=== PATIENT | female | born 1990 | race Caucasian/White ===

== ENCOUNTER 2017-10-14 10:31 | Emergency (ER) | payer SELFPAY ==
[2017-10-14 10:32] VITALS: BP 143/76; PULSE 95; RESP 16; TEMP 36.8; O2SAT 100; BMI 21.4
[2017-10-14] MEDS: Doxycycline 100 MG CAPSULE PO (10:48)
--- NOTE | 2017-10-14 10:49 | ED.DCSUM_ITS ---
- ER Visit Summary Date of Service: 10/14/17 Chief Complaint: Abscess History of Present Illness: The patient is a 26 F who presents with abscess anterior chest noted 3 days ago. She states the redness is spreading and the abscess is larger with increased pain. She denies fever, chills night sweats. She denies a traumatic fever, murmur, SBE, IV drug use to be an immune suppressed. She states her last hepatitis and HIV test was negative. She does use methamphetamine. She states she does not inject. She denies any cardiopulmonary systems. She states she has had prior abscesses. Of note she is allergic to sulfa. Please read written note for complete detail. Physical Examination: Blood pressure elevated 143/76. She appears uncomfortable. She does have an abscess near these sternal notch. There is evidence of cellulitis as well. There is no lymphangitic spread. There is no supraclavicular lymphadenopathy. HEENT exam is unremarkable. Trach is midline. There is no carotid bruit. There is no tenderness to palpation over the carotid artery. Heart is regular without murmur, gallop or rub. S1 and S2 are normal. Lungs are clear to auscultation with good movement of air bilaterally. Test Results:. None were obtained Emergency Department Course and Treatment: Patient was consented for I&D of subcutaneous abscess. Since there is surrounding cellulitis and there are multiple areas of loculation concerned this represents MRSA. She was treated with doxycycline since she has allergy to sulfa. Treatment Plan: Patient was informed that I was caring for critical patients. She decided to leave and forego the incision and drainage of her anterior chest wall abscess. Disposition: Left prior to completion of treatment Impression: Subcutaneous anterior wall abscess with cellulitis This note was generated with [employer] dictation software. It may contain incorrect words, spelling, and punctuation that were not noted in review of the chart prior to signing ED Disposition - Plan for ED Patient: Disposition: Home or Assisted Living Chief Complaint: Abscess Referrals: Cornelio Leonard MD [Primary Care Provider] -
--- NOTE | 2017-10-14 12:42 | ED.RN ---
PT WAS SEEN BY PHYSICIAN AND ORDERS ENTERED. PT WAITED FOR I&D OF CHEST ABSCESS, HOWEVER PHYSICIAN WAS WITH CRITICAL PT. PT LEFT ED WITHOUT RECEIVING TREATMENT. PT DID NOT RECEIVE DISCHARGE INSTRUCTIONS OR RX.
== END 2017-10-14 12:44 | disposition home or self-care (01) ==
LOC: ED 11:18
PROVIDERS: Emergency Provider Emergency Medicine; Family Provider Family Medicine; PCP Family Medicine
DX: L02.213 Cutaneous abscess of chest wall (principal); L03.313 Cellulitis of chest wall; Z53.21 Procedure and treatment not carried out due to patient leaving prior to being seen by health care provider; F15.90 Other stimulant use, unspecified, uncomplicated; Z72.0 Tobacco use
CPT/HCPCS: 99282

== ENCOUNTER 2017-10-15 00:15 | Emergency (ER) | payer SELFPAY ==
[2017-10-15 00:16] VITALS: BP 126/88; PULSE 81; RESP 18; TEMP 36.7; O2SAT 100; BMI 22.9
--- NOTE | 2017-10-15 00:37 | ED.DCSUM_ITS ---
- ER Visit Summary Date of Service: 10/15/17 Chief Complaint: Abscess History of Present Illness: The patient is a [address] Leonard. She reports that she developed an abscess to the left upper chest 4 days ago. She reports that she has a dull, aching pain that is 10 out of 10 at worst and 7 out of 10 currently. It is worsened by movement. It is relieved by draining and warm compresses. Patient reports that she has had this twice in the past and required I&D's. She does also report a history of IV methamphetamine abuse. Physical Examination: Vitals: Stable. Afebrile. General: Well-nourished and well-developed. Head: Normocephalic atraumatic. Neck: Supple, no lymphadenopathy. No JVD. Nontender. Cardiovascular: Regular rate and rhythm. No murmurs. Respiratory: No respiratory distress. Clear to auscultation bilaterally. Abdominal: Soft, nontender, nondistended, normal bowel sounds. No guarding, rebound, or peritoneal signs. Back: Nontender. Extremities: Approximately 2 cm thrombosed superficial vein left forearm without surrounding erythema, fluctuance, or swelling, no edema. She is neurovascularly intact distal to this. No other signs of thrombophlebitis or infection. Skin: Proximal me 3 cm in diameter erythematous area to the left upper chest just inferior to the sternoclavicular junction. There is a 1 cm ulcer in the center of this. There is no induration or fluctuance. Neurologic: Alert and oriented ?3. Cranial nerves II through XII are intact. Normal strength and sensation. Psych: Normal affect. Emergency Department Course and Treatment: Had a prolonged discussion with the patient about the abscess on her chest. I do not feel that an incision and drainage is indicated. There is no induration or fluctuance. She has had it draining at home. She is given doxycycline, [place], naproxen p.o. Treatment Plan: Patient will be discharged with doxycycline and Bactroban. She given a prescription for 10 [place]. Instructed to follow-up with Dr. Leonard in 2 days for a wound check. She does understand that if this is not improving with conservative treatment that she may require an I&D. However, she would like to avoid that if at all possible for cosmetic reasons. At this time I do not feel that anything would be gained by attempting an I&D on this lesion that is not indurated or fluctuant and is already draining. Return to the emergency department for any worsening symptoms. Disposition: To home in improved and stable condition. Impression: 1. Abscess to chest. 2. Superficial thrombophlebitis left forearm. 3. Intravenous methamphetamine abuse. This note was generated with [employer] dictation software. It may contain incorrect words, spelling, and punctuation that were not noted in review of the chart prior to signing ED Disposition - Plan for ED Patient: Disposition: Home or Assisted Living Chief Complaint: Abscess Instructions: ED Staph Infec Abx Tx Only Prescriptions: Hydrocodone Bitart/Apap 5-325 [[place] 5MG-325MG] 1 tablet PO Q4H PRN PRN 2 Days # 10 tablet PRN Reason: Pain Doxycycline Monohydrate 100 mg PO BID #20 capsule Naproxen [Naprosyn] 500 mg PO BID #14 tablet Mupirocin Calcium [Bactroban] 30 gm TP 4X/DAY #1 tube Referrals: Cornelio Leonard MD [Primary Care Provider] - 2 Days for wound check
[2017-10-15] MEDS: Naproxen 250 MG Tablet 500 MG PO (00:54)
[2017-10-15] MEDS: Doxycycline 100 MG CAPSULE PO (00:54)
[2017-10-15] MEDS: HYDROcodone Bitartrate/Apap 5/325 Tablet PO ×2 (00:54)
--- NOTE | 2017-10-15 00:57 | ED.RN ---
DISCHARGE INSTRUCTIONS GIVEN TO AND REVIEWED WITH PATIENT, PATIENT DENIES QUESTIONS OR CONCERNS AND VOICES UNDERSTANDING OF DISCHARGE INSTRUCTIONS. PT AMBULATES OUT OF ROOM WITHOUT DIFFICULTY.
== END 2017-10-15 00:58 | disposition home or self-care (01) ==
LOC: ED 00:41
PROVIDERS: Emergency Provider Emergency Medicine; Family Provider Family Medicine; PCP Family Medicine
DX: L02.213 Cutaneous abscess of chest wall (principal); I80.8 Phlebitis and thrombophlebitis of other sites; F15.10 Other stimulant abuse, uncomplicated; L98.499 Non-pressure chronic ulcer of skin of other sites with unspecified severity; F17.200 Nicotine dependence, unspecified, uncomplicated
CPT/HCPCS: 99283

== ENCOUNTER 2017-10-21 19:48 | Emergency (ER) | payer MEDICAID, SELFPAY ==
[2017-10-21 19:49] VITALS: BP 137/79; PULSE 104; RESP 20; TEMP 36.5; O2SAT 100; BMI 22.1
--- NOTE | 2017-10-21 19:57 | ED.VISSUMM ---
- ER Visit Summary Date of Service: 10/21/17 Chief Complaint: Concern for infection History of Present Illness: The patient is a 26 F who was seen within the past week and left prior to completion of treatment for a superior midline anterior chest abscess. She denies fever, chills night sweats. She denies a traumatic fever, SBE, being immune suppressed or IV drug use. She denies any other symptoms. Physical Examination: Vital signs are remarkable for heart rate 104 and blood pressure 137/79. The abscess spontaneously drained. There is surrounding cellulitis. There is concerned this represents MRSA. Since patient is allergic to sulfa she will require doxycycline. Heart is regular without murmur, gallop or rub. S1 and S2 are normal. Lungs are clear to auscultation with good movement of air bilaterally. Test Results: None are indicated Emergency Department Course and Treatment: Doxycycline for strep, and MRSA coverage Treatment Plan: Prescription for doxycycline for 7 days and follow-up with primary care provider Disposition: Discharged to home Impression: Subcutaneous abscess anterior chest spontaneous drainage with surrounding cellulitis This note was generated with [employer] dictation software. It may contain incorrect words, spelling, and punctuation that were not noted in review of the chart prior to signing ED Disposition - Plan for ED Patient: Disposition: Home or Assisted Living Chief Complaint: Abscess Instructions: ED Infec Skin Cellulitis Prescriptions: Doxycycline [Vibramycin] 100 mg PO BID #13 cap Referrals: Cornelio Leonard MD [Primary Care Provider] - 2 Days for wound check
--- NOTE | 2017-10-21 20:02 | ED.DCSUM_ITS ---
- ER Visit Summary Date of Service: 10/21/17 Chief Complaint: Concern for infection History of Present Illness: The patient is a 26 F who was seen within the past week and left prior to completion of treatment for a superior midline anterior chest abscess. She denies fever, chills night sweats. She denies a traumatic fever, SBE, being immune suppressed or IV drug use. She denies any other symptoms. Physical Examination: Vital signs are remarkable for heart rate 104 and blood pressure 137/79. The abscess spontaneously drained. There is surrounding cellulitis. There is concerned this represents MRSA. Since patient is allergic to sulfa she will require doxycycline. Heart is regular without murmur , gallop or rub. S1 and S2 are normal. Lungs are clear to auscultation with good movement of air bilaterally. Test Results: None are indicated Emergency Department Course and Treatment: Doxycycline for strep, and MRSA coverage Treatment Plan: Prescription for doxycycline for 7 days and follow-up with primary care provider Disposition: Discharged to home Impression: Subcutaneous abscess anterior chest spontaneous drainage with surrounding cellulitis This note was generated with [employer] dictation software. It may contain incorrect words, spelling, and punctuation that were not noted in review of the chart prior to signing ED Disposition - Plan for ED Patient: Disposition: Home or Assisted Living Chief Complaint: Abscess Instructions: ED Infec Skin Cellulitis Prescriptions: Doxycycline [Vibramycin] 100 mg PO BID #13 cap Referrals: Cornelio Leonard MD [Primary Care Provider] - 2 Days for wound check
[2017-10-21 20:10] VITALS: BP 137/79; PULSE 104
[2017-10-21] MEDS: Doxycycline 100 MG CAPSULE PO (20:12)
== END 2017-10-21 20:15 | disposition home or self-care (01) ==
PROVIDERS: Emergency Provider Emergency Medicine; Family Provider Family Medicine; PCP Family Medicine
DX: L03.313 Cellulitis of chest wall (principal)
CPT/HCPCS: 99283

== ENCOUNTER 2017-11-06 05:42 | Emergency (ER) | payer MEDICAID, SELFPAY ==
[2017-11-06 05:43] VITALS: PULSE 104; RESP 17; TEMP 37.1; O2SAT 98; BMI 21.1
[2017-11-06 05:50] VITALS: BP 123/75
--- NOTE | 2017-11-06 06:02 | ED.VISSUMM ---
- ER Visit Summary Date of Service: 11/06/17 Chief Complaint: Abscess History of Present Illness: The patient is a 27 F increasing abscess left arm, left lower back, left breast region over 4 days. Subjective fever, chills, sweats. History of IV drug abuse with methamphetamine. Last use was yesterday. She did inject in the left forearm prior to abscess. No diabetes history. Seen last month for similar in the sternum. Allergies sulfa causing hives. Physical Examination: General: Alert and oriented ?3, no acute distress HEENT: Normocephalic, atraumatic. Moist mucosa membranes Neck: supple, nontender. Cardiovascular: Regular rate and rhythm, no murmurs Chest wall: Left breast noted a 4 cm area of induration extends under aveolar, closed comedones, slight fluctuance, surrounding erythema. Respiratory: Normal breath sounds, symmetric, no distress Back: 1/2 cm induration with surrounding erythema, no active drainage. Abdomen: Soft, nontender, nondistended Extremities: Nontender, no edema, pulses intact ?4. Left forearm, 2 cm area of induration with slight fluctuance and erythema. Neuro: no focal neurological deficits. Test Results: WBC 12.2. Lactic acid normal. Wound cultures sent and pending. Left wrist x-ray: No radiopaque foreign bodies. Emergency Department Course and Treatment: Patient nontoxic. Multiple areas of abscesses left breast, left forearm, left lower back. Due to injection site abscess left wrist, x-ray obtained negative for radiopaque foreign bodies. The patient's region left breast extending under her aveolar. I did discuss with on-call surgeon, Dr. Fuentes recommended obtaining wound culture and I&D from left forearm and back. This was performed under normal sterile conditions. Cultures were obtained from left forearm. There is exudative drainage from both sites. Dr. Fuentes was present in the room, evaluate left breast region, he performed an I&D left breast with 2 cc of exudative drainage which was also sent to the lab. Nasal cultures were sent for MRSA. Recommended 1 dose of IV vancomycin, she will be placed on doxycycline for 10 days. Prescription of Motrin. She will be seen as an outpatient in Dr. Fuentes's office. Treatment Plan: [] Disposition: Plan discharge Impression: 1. Multiple abscesses, left breast, left wrist, left lower back 2. History of IV drug abuse This note was generated with [employer] dictation software. It may contain incorrect words, spelling, and punctuation that were not noted in review of the chart prior to signing ED Disposition - Plan for ED Patient: Disposition: Home or Assisted Living Chief Complaint: Abscess Diagnosis: Abscess of multiple sites, IV drug abuse Instructions: ED Abscess IandD Prescriptions: Doxycycline Monohydrate 100 mg PO BID #20 capsule Ibuprofen 600 mg PO 4X/DAY #30 tablet Referrals: Cornelio Leonard MD [Primary Care Provider] - Diego Dean MD [STAFF PHYSICIAN] - 3-5 Days
--- NOTE | 2017-11-06 06:17 | RAD_ITS ---
STUDY: X-RAY - LEFT WRIST REASON FOR EXAM: Female, 27 years old. Abscess area of left distal radius. IV drug user. TECHNIQUE: The view(s) of the wrist were obtained. COMPARISON: None. FINDINGS: Normal visualized distal radius and ulna. Normal radiocarpal articulation. Normal distal radioulnar articulation. Normal carpal bones. Normal carpal articulations. Normal carpometacarpal articulation of the thumb. Normal second through fifth carpometacarpal articulations. Normal visualized metacarpal bones. Focal soft tissue swelling along the distal radius. There is no radiopaque foreign body.. RAD/Wrist min 3 Views IMPRESSION: Focal soft tissue swelling along the distal radius. There is no radiopaque foreign body. No sign OF osteomyelitis. Electronically Signed: Amanda Leone MD at 7:41 EDT , Service support ,
[2017-11-06] MEDS: 0.9% Normal Saline 1,000 ML 150 ML IV (06:23)
[2017-11-06 06:31] LABS: Absolute Lymphocyte Count 1.77 X10^3/ul (0.83-4.51); Absolute Neutrophil Count 8.9 X10^3/uL (2.0-7.7); Basophil# 0.04 X10^3/uL; Basophil% 0.3 % (0-1); Eosinophil# 0.11 X10^3/uL; Eosinophils% 0.9 % (0-5); Hematocrit 34.2 % (37-47); Hemoglobin 11.9 g/dl (12.0-15.0); Lymphocyte # 1.77 X10^3/ul (4.0); Lymphocyte % 14.5 % (19-41); Mean Corp Hgb Conc 34.8 g/gl (32-36); Mean Corpuscular Hgb 31.5 pg (27.0-32.0); Mean Corpuscular Volume 90.5 fL (81-99); Mean Platelet Vol. 8.3 fl (6.2-12.0); Monocyte# 1.33 X10^3/uL; Monocyte% 10.9 % (0-10); Neutrophil # 8.92 X10^3/uL (2.7-7.7); Neutrophil % 73.2 % (47-70); Platelet Count 216 K/mm3 (150-450); RBC Distribution Width CV 12.6 % (11.6-14.6); RBC Distribution Width SD 41.4 fl (35.1-43.9); Red Blood Count 3.78 M/mm3 (4.2-5.4); White Blood Count 12.2 K/mm3 (4.4-11.0)
[2017-11-06 06:33] LABS: International Normalized Ratio 1.1; Prothrombin Time (Protime)PT. 13.7 SECONDS (11.7-14.9)
[2017-11-06 06:34] LABS: POSITIVE COUNT NO; POSITIVE DIFFERENTIAL NO; POSITIVE MORPHOLOGY NO; Partial Thromboplast Time 32.6 Seconds (24.1-36.2)
[2017-11-06 06:51] LABS: ALB/GLOB Ratio 0.8 RATIO (0.9-2.4); AST(SGOT) 146 U/L (15-37); Alanine Aminotransfer ALT/SGPT 423 U/L (13-56); Albumin, Serum 2.9 g/dL (3.2-5.0); Alkaline Phosphatase 118 U/L (45-117); Anion Gap 9 (5-15); BUN 9 mg/dL (7-18); BUN/Creat Ratio 18.9 RATIO (10-20); Chloride 107 mmol/L (98-107); Creatinine, Serum 0.48 mg/dL (0.55-1.02); EST Glomerular Filtration Rate 164 mL/min (>60); Est Glom Filt Rate - Afr Amer 199 mL/min (>60); Estimated Creatinine Clearance 149.33 ml/min; Globulin 3.5 g/dL (2.2-4.2); Glucose 112 mg/dL (74-106); Protein, Total 6.4 g/dL (6.4-8.2); Sodium Level 140 mmol/L (136-145)
[2017-11-06 06:52] LABS: Lactic Acid 0.8 mmol/L (0.4-2.0)
[2017-11-06] MEDS: Ketorolac 30 MG/ML Syringe IV (09:04)
--- NOTE | 2017-11-06 19:12 | CON.PCM_ITS ---
Reason for Consult Date of Consultation: 11/06/17 Reason for Consultation: left breast abscess History of Present Illness: The patient is a 27 year old F with a history of IV drug abuse-IV crystal methamphetamine, last used the day prior to presentation who notes a history of multiple abscesses. These have been MRSA abscesses in the past. She currently presents with an abscess on her left wrist, left posterior buttock and left breast. The patient had a white blood to count of 12. I was contacted by the emergency department physician, Dr. Agustin, was planning to perform incision and drainage of the wrist and back, but wanted my opinion for the left breast abnormality. Past Medical History Allergies Sulfa (Sulfonamide Antibiotics) Allergy (Verified 11/06/17 05:47) Rash Home Medications: Ambulatory Orders Medication Instructions Recorded Doxycycline [Vibramycin] 100 mg PO BID #13 cap 10/21/17 Doxycycline Monohydrate 100 mg PO BID #20 capsule 11/06/17 Ibuprofen 600 mg PO 4X/DAY #30 tablet 11/06/17 Smoking Status: Current every day smoker Drugs: - - intravenous methamphetamine Review of Systems Constitutional: Reports: Anorexia, Fever HEENT: Denies: Head Aches, Sinus Congestion, Sinus Drainage Cardiovascular: Denies: Chest Pain, Palpitations Respiratory: Denies: Cough, Shortness of breath at rest, Sputum production Gastrointestinal: Denies: Abdominal Pain, Nausea, Vomiting Genitourinary: Denies: Dysuria Gynecological: Reports: Breast symptoms Musculoskeletal: Reports: Arm Pain, Back Pain - Physical Exam General: Alert, Oriented x3 Lungs: Clear to auscultation Cardiovascular: Regular rate, Regular Rhythm Abdomen: Bowel Sounds Present, Soft Skin: - - an abscess with necrotic material on her left wrist and left back area , which was incised and drained by . Culture swabs were obtained. Musculoskeletal: - - left breast-along the medial inferior nipple areolar complex. There is a 3 x 2 cm area of compromised tissue with sinuses draining purulent material consistent with an MRSA abscess. Vital Signs Temp Pulse Resp BP Pulse Ox 98.8 F 104 H 17 123/75 H 98 11/06/17 05:43 11/06/17 05:43 11/06/17 05:43 11/06/17 05:50 11/06/17 05:43 Oxygen Delivery Method Room Air Weight: 55.8 kg Body Mass Index (BMI) 21.1 Microbiology Past 72 Hours 11/06/17 07:30 Gram Stain - Final Wound - Breast 11/06/17 07:06 Gram Stain - Final Wound Abcess - Left Wrist Laboratory Tests Past 24 Hrs 11/06/17 11/06/17 11/06/17 06:14 06:14 06:14 WBC 12.2 H RBC 3.78 L Hgb 11.9 L Hct 34.2 L MCV 90.5 MCH 31.5 MCHC 34.8 RDW 12.6 RDW Differential 41.4 Plt Count 216 MPV 8.3 Immature Gran % (Auto) 0.200 Neut % (Auto) 73.2 H Lymph % (Auto) 14.5 L [place] % (Auto) 10.9 H Eos % (Auto) 0.9 Baso % (Auto) 0.3 Absolute Neuts (auto) 8.9 H Absolute Lymphs (auto) 1.77 Total Counted Not Reportable PT 13.7 INR 1.1 APTT 32.6 Sodium 140 Potassium 3.0 L Chloride 107 Carbon Dioxide 24.0 Anion Gap 9 BUN 9 Creatinine 0.48 L Estim Creat Clear Calc 149.33 Est GFR (MDRD) Af Amer 199 Est GFR (MDRD) Non-Af 164 BUN/Creatinine Ratio 18.9 Glucose 112 H Lactic Acid Calcium 8.0 L Total Bilirubin 0.70 AST 146 H ALT 423 H Alkaline Phosphatase 118 H Total Protein 6.4 Albumin 2.9 L Globulin 3.5 Albumin/Globulin Ratio 0.8 L 11/06/17 06:14 WBC RBC Hgb Hct MCV MCH MCHC RDW RDW Differential Plt Count MPV Immature Gran % (Auto) Neut % (Auto) Lymph % (Auto) [place] % (Auto) Eos % (Auto) Baso % (Auto) Absolute Neuts (auto) Absolute Lymphs (auto) Total Counted PT INR APTT Sodium Potassium Chloride Carbon Dioxide Anion Gap BUN Creatinine Estim Creat Clear Calc Est GFR (MDRD) Af Amer Est GFR (MDRD) Non-Af BUN/Creatinine Ratio Glucose Lactic Acid 0.8 Calcium Total Bilirubin AST ALT Alkaline Phosphatase Total Protein Albumin Globulin Albumin/Globulin Ratio Assessment/Plan All Active Problems Abscess of multiple sites (Acute) IV drug abuse (Acute) patient was consented for incision and drainage. The left breast was Prepped and draped in the usual manner with Betadine. One percent lidocaine was injected around the planned skin incision site. An 18-gauge needle was inserted into the abscess and pus aspirated. This was sent for culture. A linear incision was made along the nipple areolar border. More purulent and necrotic tissue was able to be expressed and debrided. The site was then packed with iodoform gauze. IV drug abuse, multiple abscesses of MRSA. I recommend the patient received 1 dose of vancomycin. She has an allergy to sulfa. I recommend discharge on doxycycline. Patient is instructed to remove the packing in 1 day. She should follow up my office next week. I recommend referral to Dr. wallace, software development specialist for her intravenous methamphetamine abuse.
--- NOTE | 2017-11-08 08:54 | ED.RN ---
MRSA+ RESULTS GIVEN TO DR HAGAN. PER DR HAGAN NO CHANGES TO TREATMENT
== END 2017-11-06 10:31 | disposition home or self-care (01) ==
PROVIDERS: Emergency Provider Emergency Medicine; Family Provider Family Medicine; PCP Family Medicine
DX: L02.414 Cutaneous abscess of left upper limb (principal); L02.212 Cutaneous abscess of back [any part, except buttock and flank]; N61.1 Abscess of the breast and nipple; F15.10 Other stimulant abuse, uncomplicated; Z86.14 Personal history of Methicillin resistant Staphylococcus aureus infection; F17.200 Nicotine dependence, unspecified, uncomplicated
CPT/HCPCS: 10061; 10060; 73110; 80053; 83605; 85025; 85610; 85730; 87040; 87070; 87075; 87077; 87081; 87186; 87205; 96361; 96365; 96366; 96375; 99284; J7030; A4216

== ENCOUNTER 2018-10-21 03:04 | Emergency (ER) | payer MEDICAID, SELFPAY ==
[2018-10-21 03:06] VITALS: BP 133/86; PULSE 97; RESP 22; TEMP 36.7; O2SAT 98; BMI 23.3
--- NOTE | 2018-10-21 03:17 | EKG12_ITS ---
Test Reason : Blood Pressure : / mmHG Vent. Rate : 089 BPM Atrial Rate : 089 BPM P-R Int : 116 ms QRS Dur : 090 ms QT Int : 372 ms P-R-T Axes : 086 086 055 degrees QTc Int : 452 ms Normal sinus rhythm Possible Left atrial enlargement Borderline ECG Confirmed by CRUZ COLLINS ([id number]), film editor supervisor SOPHIA JADE ([id number] on 10/25/2018 2:52:28 PM Referred By: DAVID Confirmed By:TONO COLLINS
--- NOTE | 2018-10-21 03:17 | RAD_ITS ---
HISTORY: COUCH, CHEST PAIN EXAM:XR Chest 2 Views COMPARISON: 07/23/2016 FINDINGS: EKG leads in place. No significant change. Normal heart size. Mild hyperinflation. No vascular congestion, pleural effusion, or acute pulmonary infiltration. No pneumothorax. The bony thorax appears intact. RAD/Chest PA and Lateral IMPRESSION: 1. No acute cardiopulmonary disease. No significant interval change. 2. Mild hyperinflation. at 0351 Reported and signed by: Albaro Frederick MD Electronically Signed: Albaro Frederick, at 3:50 EDT Tel , Service support ,
--- NOTE | 2018-10-21 03:20 | ED.DCSUM_ITS ---
- ER Visit Summary Date of Service: 10/21/18 Chief Complaint: Chest pain, shortness of breath History of Present Illness: The patient is a 27 F who has had recent cough. She got chest pain, worse with deep breath since 3 PM yesterday afternoon. She has not taken anything for the pain. Cough has been nonproductive. She has not had fever or chills. Physical Examination: Vital signs unremarkable. Patient sitting upright in bed no acute distress. She does appear anxious. Heart is regular rate and rhythm. Lung sounds are clear. She does have reproducible tenderness on the right sternal border. Abdomen is soft and nontender. Lower extremity examination was no calf tenderness or edema. Test Results: EKG is sinus 89 with no acute ischemia. Two-view chest x-ray normal. CBC and chemistry studies remarkable only for glucose of 127. test is negative. D-dimer is elevated at 1.01. CTA of the chest is performed and is unremarkable. Emergency Department Course and Treatment: Patient is given IV Toradol and Solu- Medrol. I believe she has costochondritis. She has had recent viral URI. She will be treated with naproxen and prednisone. Treatment Plan: [] Disposition: Discharge Impression: Costochondritis This note was generated with [employer] dictation software. It may contain incorrect words, spelling, and punctuation that were not noted in review of the chart prior to signing ED Disposition - Plan for ED Patient: Disposition: Home or Assisted Living Instructions: ED Chest Pain Costochondritis Prescriptions: Naproxen [Naprosyn] 500 mg PO BID PRN PRN #20 tablet PRN Reason: Pain Prednisone 10 mg PO UD #33 tablet Referrals: Cornelio Leonard MD [Primary Care Provider] - 1 Week
[2018-10-21] MEDS: MethylPREDNISolone 125 MG/2 ML Vial 80 MG IV (03:23)
[2018-10-21] MEDS: Ondansetron 4 MG/2 ML Vial IV (03:23)
[2018-10-21] MEDS: 0.9% Normal Saline 1,000 ML 1000 ML IV (03:23)
[2018-10-21] MEDS: Ketorolac 30 MG/ML Syringe IV (03:23)
[2018-10-21 03:33] LABS: Absolute Lymphocyte Count 2.08 X10^3/ul (0.83-4.51); Absolute Neutrophil Count 5.4 X10^3/uL (2.0-7.7); Basophil# 0.03 X10^3/uL; Basophil% 0.3 % (0-1); Eosinophil# 0.56 X10^3/uL; Eosinophils% 6.3 % (0-5); Hematocrit 36.6 % (37-47); Hemoglobin 13.1 g/dl (12.0-15.0); Lymphocyte # 2.08 X10^3/ul (4.0); Lymphocyte % 23.5 % (19-41); Mean Corp Hgb Conc 35.8 g/gl (32-36); Mean Corpuscular Hgb 31.7 pg (27.0-32.0); Mean Corpuscular Volume 88.6 fL (81-99); Mean Platelet Vol. 8.1 fl (6.2-12.0); Monocyte# 0.79 X10^3/uL; Monocyte% 8.9 % (0-10); Neutrophil # 5.36 X10^3/uL (2.7-7.7); Neutrophil % 60.8 % (47-70); Platelet Count 194 K/mm3 (150-450); RBC Distribution Width CV 13.3 % (11.6-14.6); RBC Distribution Width SD 43.4 fl (35.1-43.9); Red Blood Count 4.13 M/mm3 (4.2-5.4); White Blood Count 8.8 K/mm3 (4.4-11.0)
[2018-10-21 03:35] LABS: POSITIVE COUNT NO; POSITIVE DIFFERENTIAL NO; POSITIVE MORPHOLOGY NO
[2018-10-21 03:45] LABS: Anion Gap 8 (5-15); BUN 11 mg/dL (7-18); BUN/Creat Ratio 14.8 RATIO (10-20); Calcium,Total 8.5 mg/dL (8.5-10.1); Chloride 106 mmol/L (98-107); Creatinine, Serum 0.74 mg/dL (0.55-1.02); EST Glomerular Filtration Rate 98 mL/min (>60); Est Glom Filt Rate - Afr Amer 118 mL/min (>60); Estimated Creatinine Clearance 96.86 ml/min; Glucose 127 mg/dL (74-106); Internal QC Validated? YES +Cl - CLEAR BKGD; Potassium 3.8 mmol/L (3.5-5.1); Pregnancy, Serum, hCG Quali. NEGATIVE Negative; Sodium Level 142 mmol/L (136-145)
[2018-10-21 03:57] LABS: D-Dimer Quantitative (DVT/PE) 1.01 FEU/ug/m (0.27-0.49)
--- NOTE | 2018-10-21 03:57 | ED.RN ---
DR BUNDY MADE AWARE OF D-DIMER 1.01.
--- NOTE | 2018-10-21 03:58 | CT_ITS ---
HISTORY: CP/ SOB/COUGH SINCE 3PM EXAMINATION: CTA Chest WO/W Contrast TECHNIQUE: Helically acquired images were obtained of the chest following IV contrast as per pulmonary angiogram protocol with 3D reconstructions. A radiation dose optimization technique was used for this scan. IV Contrast dosage and agent: 75ML Isovue 370 COMPARISON: 2 view chest x-ray 10/21/2018 Findings: The main, segmental, and visualized subsegmental pulmonary arteries show normal opacification and appearance. No PE. Thoracic aorta is normal in caliber without evidence of aneurysm or dissection. Normal heart size. No pericardial effusion. No hilar or mediastinal lymph node enlargement. The lung parenchyma is clear. A right lower lobe accessory fissure is noted. No pleural effusion or significant pleural disease. Bones: No acute osseous abnormality. CT/CTA Chest W/WO Contrast IMPRESSION: Normal CTA chest. No PE or acute chest disease identified. Individualized dose optimization techniques were used for this CT. at 5721 Reported and signed by: Albaro Frederick MD Electronically Signed: Albaro Frederick, at 4:46 EDT Tel , Service support ,
[2018-10-21 04:46] VITALS: BP 123/73; PULSE 84; RESP 18; O2SAT 100
[2018-10-21 05:05] VITALS: BP 102/87; PULSE 83; RESP 16; O2SAT 98
== END 2018-10-21 05:06 | disposition home or self-care (01) ==
PROVIDERS: Emergency Provider Emergency Medicine; Family Provider Family Medicine; PCP Family Medicine
DX: M94.0 Chondrocostal junction syndrome [Tietze] (principal); Z72.0 Tobacco use
CPT/HCPCS: 71046; 71275; 80048; 84703; 85025; 85379; 93005; 96361; 96374; 96375; 99284; J7030; Q9967; J2405

== ENCOUNTER 2020-01-15 16:30 | Emergency (ER) | payer MEDICAID, SELFPAY ==
[2020-01-15 16:32] VITALS: BP 97/24; PULSE 110; RESP 15; TEMP 37.5; O2SAT 96; BMI 24.7
[2020-01-15 16:38] VITALS: RESP 16
[2020-01-15 16:39] VITALS: BP 97/24; PULSE 110; RESP 16; TEMP 37.5; O2SAT 96
--- NOTE | 2020-01-15 16:42 | ED.VIS.GEN ---
History of Present Illness Chief Complaint: Wound Check Informant: Patient, Significant Other Onset: Weeks - 1 week Context: Gradual Onset Timing: Continuous Quality: Blister Location: Left third toe and right heel Current Severity: Moderate Maximum Severity: Moderate Worsened by: Nothing Relieved by: nothing Associated Symptoms: Denies Narrative: 29-year-old female history of depression and methamphetamine abuse presents for wound check. She has a blister on her left third toe as well as her right heel. She is concerned for infection. She states that she has not had a fever. No purulent drainage from these areas. She recently was [facility]. She has not had any chest pain or shortness of breath she has not been lightheaded or dizzy denies nausea vomiting or diarrhea or any constitutional symptoms. She does have a history of MRSA Prior similar symptoms: Yes Recent Illness/Hospitalization: No Past Medical History - Allergies and Home Meds Allergies/Adverse Reactions: Allergies Sulfa (Sulfonamide Antibiotics) Allergy (Verified 01/15/20 16:31) Rash Primary Care Physician: Cornelio Leonard MD [Primary Care Provider] - Prior records reviewed: Yes Past Medical History: - - Polysubstance abuse Surgical History: no surgical history Smoking Status: Current every day smoker Alcohol: Occasional Drugs: - - With amphetamines Review of Systems All systems negative except as indicated General: Denies: Chills, Fever, Sweats Eyes: Denies: Visual changes - bilaterally, Diplopia ENT: Denies: Rhinorrhea, Sore throat Cardiovascular: Denies: Chest pain, Palpitations Respiratory: Denies: Dyspnea, Cough, Dyspnea on exertion Gastrointestinal: Denies: Abdominal pain, Nausea, Vomiting, Diarrhea, Melena, Hematochezia Genitourinary: Denies: Dysuria, Hematuria, Frequency Musculoskeletal: Denies: Back pain, Extremity Pain Skin: Reports: Abscess. Denies: Rash, Abrasions, Wounds Neurological: Denies: Headache, Weakness, Numbness Physical Exam Vital Signs/Narrative: Vital Signs Temp Pulse Resp BP Pulse Ox 01/15/20 16:39 99.5 F H 110 H 16 97/24 L 96 01/15/20 16:38 16 01/15/20 16:32 99.5 F H 110 H 15 97/24 L 96 Inital Vital Signs reviewed: Yes General: Well nourished, Well developed, No Acute Distress Head: Normocephalic, Atraumatic Eyes: Perrl, EOMI ENT: Moist mucous membranes, No rhinorrhea Neck: Supple, Nontender Cardiovascular: Regular rate, Regular rhythm, No murmurs Respiratory: No distress, CTA bilaterally, Chest nontender Abdomen: Soft, Nontender, Nondistended, Normal bowel sounds Back: Nontender, Normal Inspection Extremities: Nontender, No edema Skin: Normal color, No rash, - - Patient has a abrasion on her left third toe dorsal aspect between the MCP and toenail. It does not affect the nail. There is some mild cellulitis. There is no abscess. She has normal capillary refill and sensation and normal active range of motion. There is no lymphatic streaking. No other wounds are noted on her foot ankle leg or thigh. She has a similar lesion on her right heel that appears to be an infected abrasion. No abscess. No lymphatic streaking. Normal range of motion actively throughout both lower extremities and normal and symmetrical pulses and sensation throughout both lower extremities Neurological: Alert, Oriented x3, Cranial nerves II-XII grossly intact, Normal Strength, Normal Sensation Psychological: Normal affect, Normal Mood Diagnostic/Tx/Re-eval - Medical Decision Making Patient has 2 infected abrasions 1 on her left third toe and one on her right heel. Will place on doxycycline. Discussed proper wound care. Discussed worsening signs of infection to monitor for. Given a primary care to follow-up. She will be discharged ED Disposition - Plan for ED Patient: Disposition: Home or Assisted Living Diagnosis: Cellulitis of toe of left foot, Cellulitis of heel, right, Methamphetamine abuse Instructions: ED Cellulitis Prescriptions: Mupirocin [Bactroban] 1 applic TOPICAL TID #1 tube Transmission Status: Pending to [facility] Doxycycline 100 mg PO BID #20 cap Transmission Status: Pending to [facility] Referrals: Cornelio Leonard MD [Primary Care Provider] -
[2020-01-15 16:54] VITALS: RESP 16
--- NOTE | 2020-01-15 16:54 | ED.RN ---
REVIEWED D/C INSTRUCTIONS, FOLLOW UP CARE, PRESCRIPTIONS, AND S/S THAT WOULD WARRANT A RETURN TO THE ED WITH PT. PT VERBALIZED AN UNDERSTANDING AND DENIES FURTHER QUESTIONS FOR THIS RN. PT SKIN P/W/D, RESP EVEN AND UNLABORED, PT A&O X 3, NO DISTRESS NOTED. PT AMBULATED OUT OF ED, GAIT STEADY.
== END 2020-01-15 16:56 | disposition home or self-care (01) ==
LOC: ED 16:48
PROVIDERS: Emergency Provider Physician Assistant Medical; PCP Family Medicine
DX: L03.032 Cellulitis of left toe (principal); L03.115 Cellulitis of right lower limb; F15.10 Other stimulant abuse, uncomplicated; S90.415A Abrasion, left lesser toe(s), initial encounter; S90.811A Abrasion, right foot, initial encounter; X58.XXXA Exposure to other specified factors, initial encounter; Y93.9 Activity, unspecified; Y92.9 Unspecified place or not applicable; F32.9 Major depressive disorder, single episode, unspecified; Z86.14 Personal history of Methicillin resistant Staphylococcus aureus infection; Z79.899 Other long term (current) drug therapy; F17.200 Nicotine dependence, unspecified, uncomplicated
CPT/HCPCS: 99282

== ENCOUNTER 2020-03-17 02:09 | Emergency (ER) | payer MEDICAID, SELFPAY ==
[2020-03-17 02:11] VITALS: BP 119/87; PULSE 98; RESP 16; TEMP 36.4; O2SAT 98; BMI 24.0
--- NOTE | 2020-03-17 02:23 | ED.VISSUMM ---
- ER Visit Summary Date of Service: 03/17/20 Chief Complaint: Fifth finger pain History of Present Illness: The patient is a 29 F who has left fifth finger pain. Started 2 days ago. She denies any trauma to this area. She noted redness. She has a history of the same with multiple fingers. She does bite her nails. She poked it with a pin tonight and had some drainage. She denies any fevers. Pain is worse with movement and with touching Physical Examination: Signs reviewed. Left hand exam reveals tenderness over the distal fifth finger. There is a paronychia on the ulnar side. It is erythematous. It is tender to touch. Test Results: None performed Emergency Department Course and Treatment: Incision and drainage was performed of the paronychia. The left fifth finger was anesthetized using a digital block of 5 cc of 1% lidocaine. Incision was made over the ulnar side of the left fifth finger nail at the cuticle. There was some purulent drainage noted. The patient was educated to soak the finger multiple times at home to help with the drainage. I will give her Keflex as well. She will follow-up with her PCP Treatment Plan: [] Disposition: Discharge Impression: Left fifth finger paronychia I&D by ED physician This note was generated with [employer] dictation software. It may contain incorrect words, spelling, and punctuation that were not noted in review of the chart prior to signing ED Disposition - Plan for ED Patient: Disposition: Home or Assisted Living Instructions: ED FINGERNAIL INFECTION Prescriptions: Cephalexin [Keflex] 500 mg PO Q6 #40 cap Transmission Status: Pending to [facility] Referrals: Cornelio Leonard MD [Primary Care Provider] -
[2020-03-17] MEDS: Cephalexin 250 MG Capsule 500 MG PO (02:32)
== END 2020-03-17 02:45 | disposition home or self-care (01) ==
LOC: ED 02:43
PROVIDERS: Emergency Provider Emergency Medicine; PCP Family Medicine
DX: L03.012 Cellulitis of left finger (principal)
CPT/HCPCS: 10060; 99283

== ENCOUNTER 2020-05-04 01:20 | Emergency (ER) | payer MEDICAID, SELFPAY ==
[2020-05-04 01:21] VITALS: BP 144/86; PULSE 104; RESP 18; TEMP 36.7; O2SAT 100; BMI 23.5
[2020-05-04 01:28] VITALS: BP 144/86; PULSE 104; RESP 18; TEMP 36.7; O2SAT 100
--- NOTE | 2020-05-04 02:16 | ED.VISSUMM ---
- ER Visit Summary Date of Service: 05/04/20 Chief Complaint: Right axilla abscess History of Present Illness: The patient is a 29 F presenting with abscess in her right axilla. This has been ongoing for the past week. She was started on doxycycline 2 days ago. She states it has not worsened but it has not improved. She has had a history of previous abscesses but not in this area. She denies fever or other complaints. Physical Examination: Vitals are stable. Patient is afebrile. Alert no acute distress. HEENT exam is unremarkable. Neck is supple. Lungs are clear and equal bilaterally. Heart is regular rate and rhythm. Abdomen is soft nontender nondistended. Extremities 3 cm abscess right axilla with fluctuance Skin is warm and dry. Remainder of exam is unremarkable. Emergency Department Course and Treatment: I&D was performed. Anesthetized with lidocaine. Incised with 11 blade. Moderate amount of pus was drained. Probed to break up loculations. Irrigated with saline. Patient is advised to continue her antibiotics until complete. She is given [place] x1 in the ED. Advised to follow-up with primary care physician. Advised return to ED for worsening complaints. Disposition: Discharge home Impression: Right axilla abscess, I&D This note was generated with [employer] dictation software. It may contain incorrect words, spelling, and punctuation that were not noted in review of the chart prior to signing ED Disposition - Plan for ED Patient: Referrals: Cornelio Leonard MD [Primary Care Provider] -
--- NOTE | 2020-05-04 02:18 | ED.DEP ---
ED Disposition - Plan for ED Patient: Instructions: ED Abscess Incision And Drainage Referrals: Cornelio Leonard MD [Primary Care Provider] -
[2020-05-04] MEDS: HYDROcodone Bitartrate/Apap 5/325 Tablet PO (02:31)
[2020-05-04] MEDS: Lidocaine 1% (20 ml mdv) 20 ML Vial INFILT (02:31)
== END 2020-05-04 02:37 | disposition home or self-care (01) ==
LOC: ED 02:24
PROVIDERS: Emergency Provider Emergency Medicine
DX: L02.411 Cutaneous abscess of right axilla (principal); Z72.0 Tobacco use
CPT/HCPCS: 10060; 99282

== ENCOUNTER 2020-06-14 19:05 | Inpatient (IN) | payer MEDICAID, SELFPAY ==
[2020-06-14 19:05] VITALS: BP 149/92; PULSE 87; RESP 16; TEMP 35.7; O2SAT 100; BMI 24.8
--- NOTE | 2020-06-14 19:18 | ED.VIS.GEN ---
History of Present Illness Chief Complaint: Substance Abuse Informant: Patient Current Severity: Moderate Maximum Severity: Moderate Narrative: The patient is a 29-year-old female who presents to the emergency department requesting detox. Patient uses IV methamphetamines and heroin. She states that she injects daily. Her last use was about 14 hours ago. She states that she does not think she is ever gone through detox. She denies any current symptoms. She does have history of anxiety and depression, but does not take any medications. She denies being suicidal or homicidal. She injects mainly in her left arm. She denies any areas of redness or erythema. Prior similar symptoms: Yes Recent Illness/Hospitalization: No Past Medical History - Allergies and Home Meds Allergies/Adverse Reactions: Allergies Sulfa (Sulfonamide Antibiotics) Allergy (Verified 06/14/20 19:33) Rash Primary Care Physician: Care Physician,No Primary [Primary Care Provider] - Prior records reviewed: Yes Past Medical History: - - Anxiety, depression Surgical History: no surgical history Smoking Status: Current every day smoker Review of Systems General: Denies: Chills, Fever, Sweats Eyes: Denies: Visual changes - bilaterally, Diplopia ENT: Denies: Rhinorrhea, Sore throat Cardiovascular: Denies: Chest pain, Palpitations Respiratory: Denies: Dyspnea, Cough, Dyspnea on exertion Gastrointestinal: Denies: Abdominal pain, Nausea, Vomiting, Diarrhea, Melena, Hematochezia Genitourinary: Denies: Dysuria, Hematuria, Frequency Musculoskeletal: Denies: Back pain, Extremity Pain Skin: Denies: Rash, Wounds Neurological: Denies: Headache, Weakness, Numbness Physical Exam Vital Signs/Narrative: Vital Signs Temp Pulse Resp BP Pulse Ox 06/14/20 19:05 96.3 F L 87 16 149/92 H 100 Inital Vital Signs reviewed: Yes General: Well nourished, Well developed, No Acute Distress Head: Normocephalic, Atraumatic Eyes: Perrl, EOMI ENT: Moist mucous membranes, No rhinorrhea Neck: Supple, Nontender Cardiovascular: Regular rate, Regular rhythm, No murmurs Respiratory: No distress, CTA bilaterally, Chest nontender Abdomen: Soft, Nontender, Nondistended, Normal bowel sounds Back: Nontender, Normal Inspection Extremities: No edema, Tenderness - There is multiple injection mcclain on the left arm. No erythema. No abscess. Normal pulses. Skin: Normal color, No rash Neurological: Alert, Oriented x3, Cranial nerves II-XII grossly intact, Normal Strength, Normal Sensation Psychological: Normal affect, Normal Mood Diagnostic/Tx/Re-eval Abnormal Lab Results 06/14/20 06/14/20 06/14/20 19:30 19:35 19:35 WBC 6.2 RBC 4.54 Hgb 13.6 Hct 39.9 MCV 87.9 MCH 30.0 MCHC 34.1 RDW Std Deviation 40.1 RDW Coeff of Buddy 12.4 Plt Count 277 MPV 8.3 Immature Gran % (Auto) 0.300 Neut % (Auto) 51.3 Lymph % (Auto) 32.3 [place] % (Auto) 14.0 H Eos % (Auto) 1.5 Baso % (Auto) 0.6 Absolute Neuts (auto) 3.2 Absolute Lymphs (auto) 1.99 Nucleated RBC % 0 Urine Test Negative Urine Opiates Screen NEGATIVE Urine Methadone Screen NEGATIVE Ur Barbiturates Screen NEGATIVE Ur Phencyclidine Scrn NEGATIVE Ur Amphetamines Screen POSITIVE H U Methamphetamin-MDMA POSITIVE H U Benzodiazepines Scrn NEGATIVE Urine Cocaine Screen NEGATIVE U Cannabinoids Screen NEGATIVE Ur Drug Screen Comment - Medical Decision Making Patient presents requesting detox from opiates and methamphetamines. She is awake and alert. Metabolic work-up was pursued and is relatively unremarkable. The patient was seen and evaluated by social work. She did consent for inpatient detox. The patient was discussed with the hospitalist. Impression 1. Substance abuse 2. Opiate dependence ED Disposition - Plan for ED Patient: Referrals: Care Physician,No Primary [Primary Care Provider] -
[2020-06-14 19:48] LABS: Absolute Lymphocyte Count 1.99 X10^3/uL (0.83-4.51); Absolute Neutrophil Count 3.2 X10^3/uL (2.0-7.7); Basophil# 0.04 X10^3/uL; Basophil% 0.6 % (0-1); Eosinophil# 0.09 X10^3/uL; Eosinophils% 1.5 % (0-5); Hematocrit 39.9 % (37-47); Hemoglobin 13.6 g/dL (12.0-15.0); Lymphocyte # 1.99 X10^3/ul (4.0); Lymphocyte % 32.3 % (19-41); Mean Corp Hgb Conc 34.1 g/dL (32-36); Mean Corpuscular Volume 87.9 fL (81-99); Mean Platelet Vol. 8.3 fl (6.2-12.0); Monocyte# 0.86 X10^3/uL; NRBC Flagged by Analyzer 0 % (0-5); Neutrophil # 3.16 X10^3/uL (2.7-7.7); Neutrophil % 51.3 % (47-70); Platelet Count 277 K/mm3 (150-450); RBC Distribution Width CV 12.4 % (11.6-14.6); RBC Distribution Width SD 40.1 fl (35.1-43.9); Red Blood Count 4.54 M/mm3 (4.2-5.4); White Blood Count 6.2 K/mm3 (4.4-11.0)
[2020-06-14 19:53] LABS: Internal QC Validated? YES +Cl - CLEAR BKGD; Pregnancy, Urine Negative Negative
[2020-06-14 20:11] LABS: Amphetamine Urine VISTA POSITIVE (<1000 ng/mL); Barbiturate Urine VISTA NEGATIVE (< 200 ng/mL); Benzodiazepine Urine VISTA NEGATIVE (< 200 ng/mL); Cocaine Urine VISTA NEGATIVE (< 300 ng/mL); Ecstacy Urine VISTA POSITIVE (< 500 ng/mL); Methadone Urine VISTA NEGATIVE (< 300 ng/mL); PCP Urine VISTA NEGATIVE (< 25 ng/mL); THC Urine VISTA NEGATIVE (< 50 ng/mL); Vista UDS pH Range 7
[2020-06-14 20:16] LABS: Alcohol, Blood (Medical)-Serum < 3.0 mg/dL
[2020-06-14 20:20] LABS: ALB/GLOB Ratio 0.9 RATIO (0.9-2.4); AST(SGOT) 33 U/L (15-37); Alanine Aminotransfer ALT/SGPT 88 U/L (13-56); Albumin, Serum 3.5 g/dL (3.2-5.0); Alkaline Phosphatase 138 U/L (45-117); Anion Gap 6 (5-15); BUN 12 mg/dL (7-18); BUN/Creat Ratio 18.5 RATIO (10-20); Calcium,Total 8.6 mg/dL (8.5-10.1); Chloride 106 mmol/L (98-107); Creatinine, Serum 0.65 mg/dL (0.55-1.02); EST Glomerular Filtration Rate 113 mL/min (>60); Est Glom Filt Rate - Afr Amer 137 mL/min (>60); Estimated Creatinine Clearance 108.29 ml/min; Glucose 81 mg/dL (74-106); Potassium 3.6 mmol/L (3.5-5.1); Protein, Total 7.5 g/dL (6.4-8.2); Sodium Level 138 mmol/L (136-145)
--- NOTE | 2020-06-14 20:26 | CM.ED ---
Social Work Consult: Substance Abuse Informant: Self Referral Met with patient in room. Introduced self and social worker aide role. Patient agreeable to speak with this social worker aide. Patient reports substance of choice as Heroin and Meth. Patient reports to have used in the past 24hrs. Patient reports to be seeking medical management of withdrawal symptoms. Patient verbally agreeing to [facility] contract. Patient reports plan to follow up with [facility] at discharge from [facility]. Patient reports mental health history of Depression and Anxiety. Patient reports I am suppose to be on medications. Patient reports to have children but to not have custody of children, they are with their dad. Patient reports to have a history of working with [facility]. Patient denies any history of going through detox other than in shelter. Patient reports to have gotten out of shelter this past October 2019. Patient reports I just need to make a change. Patient denies suicidal thoughts, plans, intents. Active support and listening provided. Patient tearful when speaking about children. This social worker aide able to answer patient questions. [facility] Updated on patient admission to [facility]. Yvonne CALIX, EULOGIO
[2020-06-14 21:03] VITALS: BP 149/92; PULSE 87; RESP 16; TEMP 35.7; O2SAT 100
--- NOTE | 2020-06-14 21:42 | HP.PCM_ITS ---
Problem List (1) Chronic, continuous use of opioids Status: Chronic (2) Acute opioid withdrawal Status: Acute (3) Anxiety and depression Status: Chronic History of Present Illness Date of Admission: 06/14/20 Chief Complaint: Request for medical detoxification. Acute opioid withdrawal The patient is a 29 year old F with past medical history of anxiety/depression, polysubstance use -heroin, methamphetamines, chronic hepatitis C, not on treatment , is in with request for medical stabilization. Patient admits to using opioids since the age of 13. She usually uses any amount of heroin that she can get her hands on. She last used heroin 14 to 16 hours ago. She also has been using methamphetamine for months. She comes in with feeling anxious, body aches, feeling sweaty. Denies any nausea or vomiting or fever. Admits to chills. Vitals in the ED showed temperature of 96.3F, heart rate 87, blood pressure 149/92, respiratory 16, SPO2 100% on room air. Her CBCD was unremarkable. CMP was unremarkable except for ALT and ALP. Urine test was negative. Urine tox showed positive for methamphetamines. Alcohol levels were negative. 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 Denies: Fever, Night Sweats, Weakness, Weight Change Eyes: Denies: Blurred vision, Cataracts, Conjunctivae Inflammation, Double vision, Pain, Redness HEENT: Denies: Difficulty Hearing, Difficulty Swallowing, Head Aches, Hearing Changes, Sinus Congestion, Sinus Drainage Cardiovascular: Denies: Chest Pain, Claudication, Chest Pressure, Orthopnea, Palpitations Respiratory: Denies: Cough, Hemoptysis, Shortness of Breath, Shortness of breath at rest, Shortness of breath upon exertion, Sputum production Gastrointestinal: Denies: Abdominal Pain, Constipation, Hematemesis, Hematochezia, Nausea, Vomiting Genitourinary: Denies: Dysuria, Frequency, Incontinence, Nocturia Musculoskeletal: Denies: Joint Pain, Joint stiffness, Joint swelling, Joint Tenderness Skin: Denies: Rash, Wounds Neurological: Denies: Difficulty swallowing, Focal weakness, Incoordination, Numbness, Tingling Psychiatric: Denies: Anxiety, Depression, Homicidal Ideations, Suicidal Ideations Hematologic/ Lymphatic: Denies: Easy Bruising, Easy Bleeding VTE Information - Inpt Only VTE Present on Admission: No VTE Pharm Prophylaxis ordered?: Yes Patient Problems: Active and Suspected Problems Acute opioid withdrawal (Acute) - Physical Exam Vitals/I&O's: Vital Signs Temp Pulse Resp BP Pulse Ox 96.3 F L 87 16 149/92 H 100 06/14/20 21:03 06/14/20 21:03 06/14/20 21:03 06/14/20 21:03 06/14/20 21:03 Oxygen Delivery Method Room Air Weight: 65.6 kg Body Mass Index (BMI) 24.8 General: Alert, Oriented x3, Cooperative, No apparent distress HEENT: Atraumatic, PERRLA, EOMI, Normocephalic Oral: Moist Mucosa Neck: Supple Lungs: Clear to auscultation, Normal air movement Cardiovascular: Regular rate, Regular Rhythm, Normal S1, Normal S2, No murmurs Abdomen: Bowel Sounds Present, Soft, Non Tender, Non-Distended, No Hepato- splenomegaly Extremities: No edema Skin: - - Scabs in various stages of healing on face, shoulders, extremities, needle track mcclain in the bilateral forearms Musculoskeletal: No Tenderness to Palpation of Joints or Extremities Neurological: Cranial nerves II-XII grossly intact Psych/Mental Status: Normal Affect, Appropriate Laboratory Results 06/14/20 19:30: WBC 6.2, RBC 4.54, Hgb 13.6, Hct 39.9, MCV 87.9, MCH 30.0, MCHC 34.1, RDW Std Deviation 40.1, RDW Coeff of Buddy 12.4, Plt Count 277, MPV 8.3, Immature Gran % (Auto) 0.300, Neut % (Auto) 51.3, Lymph % (Auto) 32.3, [place] % (Auto) 14.0 H, Eos % (Auto) 1.5, Baso % (Auto) 0.6, Absolute Neuts (auto) 3.2, Absolute Lymphs (auto) 1.99, Nucleated RBC % 0 06/14/20 19:30: Sodium 138, Potassium 3.6, Chloride 106, Carbon Dioxide 26.0, Anion Gap 6, BUN 12, Creatinine 0.65, Estim Creat Clear Calc 108.29, Est GFR (MDRD) Af Amer 137, Est GFR (MDRD) Non-Af 113, BUN/Creatinine Ratio 18.5, Glucose 81, Calcium 8.6, Total Bilirubin 0.50, AST 33, ALT 88 H, Alkaline Phosphatase 138 H, Total Protein 7.5, Albumin 3.5, Globulin 4.0, Albumin/Globulin Ratio 0.9 06/14/20 19:30: Ethyl Alcohol < 3.0 06/14/20 19:35: Urine Test Negative 06/14/20 19:35: Urine Opiates Screen NEGATIVE, Urine Methadone Screen NEGATIVE, Ur Barbiturates Screen NEGATIVE, Ur Phencyclidine Scrn NEGATIVE, Ur Amphetamines Screen POSITIVE H, U Methamphetamin-MDMA POSITIVE H, U Benzodiazepines Scrn NEGATIVE, Urine Cocaine Screen NEGATIVE, U Cannabinoids Screen NEGATIVE, Ur Drug Screen Comment Assessment/Plan All Active Problems Acute opioid withdrawal (Acute) 1. Acute opioid withdrawal in a patient with chronic heroin use Patient last used heroin 14 to 16 hours prior to admission Continue on buprenorphine withdrawal protocol 2. Nicotine dependence, advised to quit, will put on replacement 3. Polysubstance use, advised to quit 4. Anxiety/depression, not been on medications 5. Chronic hep C, not on treatment, advised to follow-up in the outpatient 6. DVT prophylaxis?low risk, early ambulation Inpatient E&M: 51572 Init Hosp L2
[2020-06-14 22:07] VITALS: BMI 23.7
[2020-06-14 22:30] VITALS: BP 123/81; PULSE 72; RESP 16; TEMP 36.7; O2SAT 100
[2020-06-14 22:37] VITALS: PULSE 64
[2020-06-14] MEDS: Buprenorphine HCl 2 MG TAB.SUBL SL (22:58)
[2020-06-14] MEDS: Ondansetron 8 MG Tablet PO (22:59)
[2020-06-15] VITALS (7 sets, daily range): BP systolic 123–132; BP diastolic 70–83; PULSE 70–92; RESP 16–20; TEMP 36.5–36.9; O2SAT 97–100
[2020-06-15] MEDS: hydrOXYzine PAM 25 MG Capsule 50 MG PO ×2 (02:56→13:52)
[2020-06-15] MEDS: Ibuprofen 600 MG Tablet PO ×2 (02:56→17:37)
[2020-06-15] MEDS: Buprenorphine HCl 2 MG TAB.SUBL SL ×3 (06:41→22:36)
[2020-06-15] MEDS: Gabapentin 300 MG Capsule PO ×2 (08:55→19:25)
[2020-06-15] MEDS: Ondansetron 8 MG Tablet PO (08:55)
--- NOTE | 2020-06-15 10:43 | PCM.PROGNOTE ---
Patient Problems: Active and Suspected Problems Acute opioid withdrawal (Acute) Subjective: Chief complaint: Follow-up after admission for acute opioid withdrawal. Patient seen and examined. No acute events overnight. She reported some improvement of her symptoms including shakiness and body aches. She was able to sleep last night intermittently. Denied abdominal pain, diarrhea or nausea. Her vital signs are stable. - Physical Exam Vitals/I&O's: Vital Signs Temp Pulse Resp BP Pulse Ox 98.1 F 70 20 H 132/70 H 100 06/15/20 06:34 06/15/20 08:44 06/15/20 06:34 06/15/20 06:34 06/15/20 06:34 Oxygen Delivery Method Room Air Weight: 138 lb 3.677 oz Body Mass Index (BMI) 23.7 General: Alert, Oriented x3, Cooperative, No apparent distress HEENT: Atraumatic, PERRLA, EOMI, Normocephalic Oral: Moist Mucosa, No Gingival or Mucosal Lesions/ Ulcerations Neck: Supple, No JVD, Negative Carotid Bruits, Trachea Midline, Thyroid Normal Size and Texture Lungs: Clear to auscultation, Normal air movement, No rhonchi, No wheeze, No rales Cardiovascular: Regular rate, Regular Rhythm, Normal S1, Normal S2, PMI Normal Abdomen: Bowel Sounds Present, Soft, Non Tender, Non-Distended, No Hepato-splenomegaly Extremities: No clubbing, No cyanosis, No edema Skin: No rashes, No breakdown Lymphatic: No Cervical, Supraclavicular, or Inguinal Adenopathy Neurological: Cranial nerves II-XII grossly intact, Motor Exam 5/5 strength throughout Psych/Mental Status: Normal Affect, Appropriate, Alert and oriented to time, place, person, mood and affect Laboratory Results 06/14/20 19:30: WBC 6.2, RBC 4.54, Hgb 13.6, Hct 39.9, MCV 87.9, MCH 30.0, MCHC 34.1, RDW Std Deviation 40.1, RDW Coeff of Buddy 12.4, Plt Count 277, MPV 8.3, Immature Gran % (Auto) 0.300, Neut % (Auto) 51.3, Lymph % (Auto) 32.3, [place] % (Auto) 14.0 H, Eos % (Auto) 1.5, Baso % (Auto) 0.6, Absolute Neuts (auto) 3.2, Absolute Lymphs (auto) 1.99, Nucleated RBC % 0 06/14/20 19:30: Sodium 138, Potassium 3.6, Chloride 106, Carbon Dioxide 26.0, Anion Gap 6, BUN 12, Creatinine 0.65, Estim Creat Clear Calc 108.29, Est GFR (MDRD) Af Amer 137, Est GFR (MDRD) Non-Af 113, BUN/Creatinine Ratio 18.5, Glucose 81, Calcium 8.6, Total Bilirubin 0.50, AST 33, ALT 88 H, Alkaline Phosphatase 138 H, Total Protein 7.5, Albumin 3.5, Globulin 4.0, Albumin/Globulin Ratio 0.9 06/14/20 19:30: Ethyl Alcohol < 3.0 06/14/20 19:35: Urine Test Negative 06/14/20 19:35: Urine Opiates Screen NEGATIVE, Urine Methadone Screen NEGATIVE, Ur Barbiturates Screen NEGATIVE, Ur Phencyclidine Scrn NEGATIVE, Ur Amphetamines Screen POSITIVE H, U Methamphetamin-MDMA POSITIVE H, U Benzodiazepines Scrn NEGATIVE, Urine Cocaine Screen NEGATIVE, U Cannabinoids Screen NEGATIVE, Ur Drug Screen Comment Current Medications Acetaminophen (Acetaminophen 500 Mg Tablet) 500 mg PO Q4H PRN PRN PRN Reason: Temp > 100.4 F Al Hydroxide/Mg Hydroxide (Mag Hydrox/Al Hydrox/Simeth 30 Ml Udc) 30 ml PO Q6H PRN PRN PRN Reason: dyspesia Buprenorphine HCl (Buprenorphine Hcl 2 Mg Tab.Subl) 4 mg SL Q8H FRANCK; Taper Stop: 06/17/20 22:59 Last Admin: 06/15/20 06:41 Dose: 4 mg Documented by: Clonidine (Clonidine Hcl 0.1 Mg Tablet) 0.1 mg PO Q8H PRN PRN PRN Reason: RESTLESSNESS Dicyclomine HCl (Dicyclomine 10 Mg Capsule) 20 mg PO Q6H PRN PRN PRN Reason: Abdominal Discomfort Gabapentin (Gabapentin 300 Mg Capsule) 300 mg PO Q8H PRN PRN PRN Reason: moderate to severe anxiety Last Admin: 06/15/20 08:55 Dose: 300 mg Documented by: Hydroxyzine Pamoate (Hydroxyzine Dorinda 25 Mg Capsule) 50 mg PO Q6H PRN PRN PRN Reason: mild anxiety Last Admin: 06/15/20 02:56 Dose: 50 mg Documented by: Ibuprofen (Ibuprofen 600 Mg Tablet) 600 mg PO Q8H PRN PRN PRN Reason: Pain Score 1-10 Last Admin: 06/15/20 02:56 Dose: 600 mg Documented by: Loperamide HCl (Loperamide 2 Mg Capsule) 2 mg PO Q4H PRN PRN PRN Reason: LOOSE STOOLS Methocarbamol (Methocarbamol 750 Mg Tablet) 1,500 mg PO Q6H PRN PRN PRN Reason: MUSCLE SPASM Nicotine (Nicotine 21 Mg Patch) 21 mg TD DAILY [facility] Last Admin: 06/15/20 08:55 Dose: 21 mg Documented by: Nicotine Polacrilex (Nicotine Polacrilex 4 Mg Gum) 4 mg PO Q2H PRN PRN PRN Reason: Nicotine Craving Nutritional Formula (Lactose Free) (Ensure Enlive 120 Ml Liquid) 120 ml PO 4X/DAY [facility] Last Admin: 06/15/20 08:55 Dose: 120 ml Documented by: Ondansetron HCl (Ondansetron 8 Mg Tablet) 8 mg PO Q8H PRN PRN PRN Reason: NAUSEA Last Admin: 06/15/20 08:55 Dose: 8 mg Documented by: Senna (Senna Tablet) 2 tablet PO QHS PRN PRN Reason: Constipation Trazodone HCl (Trazodone 100 Mg Tablet) 100 mg PO QHS PRN PRN PRN Reason: INSOMNIA Medical Necessity - Tobacco Use Smoking Status: Current every day smoker Tobacco Use: Cigarettes Assessment/Plan All Active Problems Acute opioid withdrawal (Acute) This is a 29 years old female patient admitted for acute opioid withdrawal for medical stabilization. #1 acute opiate withdrawal: Patient has been injecting IV heroin and using amphetamines admitted for the [place]. She is on tapering Subutex, as needed Catapres, Bentyl, Neurontin, Vistaril, Motrin, Imodium, methocarbamol, Zofran and trazodone. Routine blood work was unremarkable. LFT revealed slight elevated ALT, otherwise normal. test was negative. Urine drug screen was positive for amphetamines admitted for the [place]. Blood alcohol level was less then 3. Plan to continue same treatment, consult [facility] program. #2 polysubstance abuse: Patient has been using heroin as well as amphetamines. Urine drug screen reviewed as above. #3 tobacco abuse: Continue nicotine patch. #4 chronic hepatitis C: Currently not on treatment, recommend follow-up with infectious disease as outpatient. #5 DVT prophylaxis: Low risk patient, no prophylaxis indicated. This note was generated with [employer] software. It may contain incorrect words, spelling, and punctuation that were not noted in checking the note before signing. Inpatient E&M: 79340 Subs Hosp L2
--- NOTE | 2020-06-15 10:45 | ADDICTION ---
This investment underwriter met with patient in her room to complete ASAM, MSE, DUDIT, DAVION and d/c plan. All assessments completed, faxed to and placed in PT chart. Pt states that she plans to engage with [facility] for sober living or will possibly move to [place] with her boyfriend.
[2020-06-15] MEDS: Methocarbamol 750 MG Tablet 1500 MG PO (13:52)
[2020-06-15] MEDS: Senna Tablet 2 TABLET PO (19:26)
[2020-06-16] MEDS: Ibuprofen 600 MG Tablet PO ×2 (02:17→17:38)
[2020-06-16 02:21] VITALS: BP 134/84; PULSE 84; RESP 16; TEMP 36.8; O2SAT 98
[2020-06-16] MEDS: Buprenorphine HCl 2 MG TAB.SUBL SL ×3 (06:30→22:21)
--- NOTE | 2020-06-16 09:09 | PCM.PROGNOTE ---
Patient Problems: Active and Suspected Problems Acute opioid withdrawal (Acute) Subjective: Chief complaint: Follow-up after admission for acute opioid withdrawal. Patient seen and examined. No acute events overnight. Today, she is feeling better. She did not have a good sleep last night but it is improving. No new complaints. Her vital signs are stable. - Physical Exam Vitals/I&O's: Vital Signs Temp Pulse Resp BP Pulse Ox 98.3 F 84 16 134/84 H 98 06/16/20 02:21 06/16/20 02:21 06/16/20 02:21 06/16/20 02:21 06/16/20 02:21 Oxygen Delivery Method Room Air Weight: 138 lb 3.677 oz Body Mass Index (BMI) 23.7 Intake and Output for Last 24 Hours 06/14/20 06/15/20 06/16/20 23:59 23:59 23:59 Intake Total 550 / 550 Balance 550 / 550 General: Alert, Oriented x3, Cooperative, No apparent distress HEENT: Atraumatic, PERRLA, EOMI, Normocephalic Oral: Moist Mucosa, No Gingival or Mucosal Lesions/ Ulcerations Neck: Supple, No JVD, Negative Carotid Bruits, Trachea Midline, Thyroid Normal Size and Texture Lungs: Clear to auscultation, Normal air movement, No rhonchi, No wheeze, No rales Cardiovascular: Regular rate, Regular Rhythm, Normal S1, Normal S2, PMI Normal Abdomen: Bowel Sounds Present, Soft, Non Tender, Non-Distended, No Hepato-splenomegaly Extremities: No clubbing, No cyanosis, No edema Skin: No rashes, No breakdown Lymphatic: No Cervical, Supraclavicular, or Inguinal Adenopathy Neurological: Cranial nerves II-XII grossly intact, Neuro grossly intact Psych/Mental Status: Normal Affect, Appropriate Current Medications Acetaminophen (Acetaminophen 500 Mg Tablet) 500 mg PO Q4H PRN PRN PRN Reason: Temp > 100.4 F Al Hydroxide/Mg Hydroxide (Mag Hydrox/Al Hydrox/Simeth 30 Ml Udc) 30 ml PO Q6H PRN PRN PRN Reason: dyspesia Buprenorphine HCl (Buprenorphine Hcl 2 Mg Tab.Subl) 2 mg SL Q8H FRANCK; Taper Stop: 06/17/20 22:59 Last Admin: 06/16/20 06:30 Dose: 2 mg Documented by: Clonidine (Clonidine Hcl 0.1 Mg Tablet) 0.1 mg PO Q8H PRN PRN PRN Reason: RESTLESSNESS Dicyclomine HCl (Dicyclomine 10 Mg Capsule) 20 mg PO Q6H PRN PRN PRN Reason: Abdominal Discomfort Gabapentin (Gabapentin 300 Mg Capsule) 300 mg PO Q8H PRN PRN PRN Reason: moderate to severe anxiety Last Admin: 06/15/20 19:25 Dose: 300 mg Documented by: Hydroxyzine Pamoate (Hydroxyzine Dorinda 25 Mg Capsule) 50 mg PO Q6H PRN PRN PRN Reason: mild anxiety Last Admin: 06/15/20 13:52 Dose: 50 mg Documented by: Ibuprofen (Ibuprofen 600 Mg Tablet) 600 mg PO Q8H PRN PRN PRN Reason: Pain Score 1-10 Last Admin: 06/16/20 02:17 Dose: 600 mg Documented by: Loperamide HCl (Loperamide 2 Mg Capsule) 2 mg PO Q4H PRN PRN PRN Reason: LOOSE STOOLS Methocarbamol (Methocarbamol 750 Mg Tablet) 1,500 mg PO Q6H PRN PRN PRN Reason: MUSCLE SPASM Last Admin: 06/15/20 13:52 Dose: 1,500 mg Documented by: Nicotine (Nicotine 21 Mg Patch) 21 mg TD DAILY [facility] Last Admin: 06/15/20 22:38 Dose: 21 mg Documented by: Nicotine Polacrilex (Nicotine Polacrilex 4 Mg Gum) 4 mg PO Q2H PRN PRN PRN Reason: Nicotine Craving Nutritional Formula (Lactose Free) (Ensure Enlive 120 Ml Liquid) 120 ml PO 4X/DAY [facility] Last Admin: 06/15/20 22:36 Dose: 120 ml Documented by: Ondansetron HCl (Ondansetron 8 Mg Tablet) 8 mg PO Q8H PRN PRN PRN Reason: NAUSEA Last Admin: 06/15/20 08:55 Dose: 8 mg Documented by: Senna (Senna Tablet) 2 tablet PO QHS PRN PRN Reason: Constipation Last Admin: 06/15/20 19:26 Dose: 2 tablet Documented by: Trazodone HCl (Trazodone 100 Mg Tablet) 100 mg PO QHS PRN PRN PRN Reason: INSOMNIA Medical Necessity - Tobacco Use Smoking Status: Current every day smoker Tobacco Use: Cigarettes Assessment/Plan All Active Problems Acute opioid withdrawal (Acute) This is a 29 years old female patient admitted for acute opioid withdrawal for medical stabilization. #1 acute opiate withdrawal: Remained on tapering Subutex, as needed Catapres, Bentyl, Neurontin, Vistaril, Motrin, Imodium, methocarbamol, Zofran and trazodone. Today, she is feeling better, had trouble sleeping last night but getting better. Routine blood work was unremarkable. LFT revealed slight elevated ALT, otherwise normal. test was negative. Urine drug screen was positive for amphetamines admitted for the means. Blood alcohol level was less then 3. Plan to continue same treatment. #2 polysubstance abuse: Patient has been using heroin as well as amphetamines. Urine drug screen reviewed as above. #3 tobacco abuse: Continue nicotine patch. #4 chronic hepatitis C: Currently not on treatment, recommend follow-up with infectious disease as outpatient. #5 DVT prophylaxis: Low risk patient, no prophylaxis indicated. This note was generated with [employer] dictation software. It may contain incorrect words, spelling, and punctuation that were not noted in checking the note before signing. Inpatient E&M: 08883 Subs Hosp L2
[2020-06-16 09:50] VITALS: BP 126/73; PULSE 85; RESP 16; TEMP 36.8; O2SAT 100
[2020-06-16] MEDS: Methocarbamol 750 MG Tablet 1500 MG PO ×2 (09:57→17:39)
[2020-06-16] MEDS: Gabapentin 300 MG Capsule PO ×2 (09:58→22:21)
--- NOTE | 2020-06-16 10:20 | CASEMGMT ---
RN had mentioned to CLAUDIO yesterday that pt is homeless and may go to [facility], or go to [place]. SW spoke w/pt briefly in regard to where she is going from here, offered information on local shelters if needed. Pt states she is aware of the resources in the area, and she plans at this time to go to [facility] from here. She states she confirmed with them they have a spot for her when she leaves here, she plans to save her money to eventually get to [place]. EULOGIO Snowden
[2020-06-16 14:30] VITALS: BP 127/73; PULSE 106; RESP 16; TEMP 36.8; O2SAT 100
[2020-06-16] MEDS: hydrOXYzine PAM 25 MG Capsule 50 MG PO (14:32)
[2020-06-16 17:34] VITALS: BP 130/80; PULSE 103; RESP 16; TEMP 36.4; O2SAT 100
[2020-06-16 22:20] VITALS: BP 122/71; PULSE 96; RESP 16; TEMP 36.9; O2SAT 99
[2020-06-16] MEDS: cloNIDine HCl 0.1 MG Tablet PO (22:21)
[2020-06-17 03:50] VITALS: BP 126/73; PULSE 88; RESP 18; TEMP 36.8; O2SAT 98
--- NOTE | 2020-06-17 09:08 | DCINST_ITS ---
- Discharge Diagnoses Current Active Problems: Current Active and Chronic Problems Chronic, continuous use of opioids (Chronic) Acute opioid withdrawal (Acute) Anxiety and depression (Chronic) You will use the following diet at home:: Regular Your food should be the consistency of: Regular Discharge Activity: Return to Normal Activity Weight Bearing Status: Full weight bearing Call your doctor if you observe: Fever of 101 or Higher, Shortness of breath, Dizziness, Fainting spells, Chest pain, Increased palpitations (irregular heartbeat), Uncontrolled pain Additional Instructions: Please follow-up with the [facility] program. Allergies/Adverse Reactions: Allergies Sulfa (Sulfonamide Antibiotics) Allergy (Verified 06/14/20 19:33) Rash Medications to take at Discharge NK 06/14/20 Primary Care Physician: Care Physician,No Primary [Primary Care Provider] - Please follow up with your Primary Care Physician in: 2-3 WEEKS. Test Results: Test results from this visit will be discussed in further detail at your follow- up appointment, if applicable.
[2020-06-17 10:00] VITALS: BP 146/75; PULSE 106; RESP 18; TEMP 36.7; O2SAT 100
[2020-06-17] MEDS: Buprenorphine HCl 2 MG TAB.SUBL SL (10:02)
[2020-06-17] MEDS: Gabapentin 300 MG Capsule PO (10:14)
[2020-06-17] MEDS: Ibuprofen 600 MG Tablet PO ×2 (10:14→20:43)
--- NOTE | 2020-06-17 11:02 | PCM.DC.SUM ---
Discharge Date and Diagnosis - Problem List Patient Problems: Active and Suspected Problems Acute opioid withdrawal (Acute) Date of Admission: 06/14/20 Date of Discharge: 06/17/20 - Primary Discharge Diagnosis Acute Problems: Active Problems Acute opioid withdrawal admitted for medical stabilization (Acute) - Secondary Discharge Diagnosis Chronic Problems: Chronic Problems Chronic, continuous use of opioids (Chronic) Anxiety and depression (Chronic) Hospital Course and Treatment Operations: None Procedures: None Summary of Care Provided: Patient seen and examined on the day of discharge and appeared to be stable to be discharged home. She is feeling better, symptoms improved. Her vital signs were stable. The patient is a 29 year old F presented to the emergency room requesting admission for acute opioid withdrawal for medical stabilization. Patient admitted using IV heroin as well as amphetamines. Her routine blood work was unremarkable. Her LFT revealed minimally elevated AST, otherwise normal. She does have a history of chronic hepatitis C. Her urine drug screen was positive for amphetamines and methamphetamines. test was negative. Patient was admitted to [facility] floor, started on opioid withdrawal protocol with tapering Subutex, as needed Bentyl, Catapres, Neurontin, Vistaril, Motrin, Imodium, methocarbamol, Zofran and trazodone. With treatment, patient felt better, symptoms improved. [facility] program consulted and patient is going for treatment as outpatient. Patient completed Subutex taper. Patient discharged home in a stable medical condition, expressed the importance of follow-up with [facility] program, recommended follow-up with PCP in 2 to 3 weeks. Patient Problems: Active and Suspected Problems Acute opioid withdrawal (Acute) - Physical Exam Vitals/I&O's: Vital Signs Temp Pulse Resp BP Pulse Ox 98.0 F 106 H 18 146/75 H 100 06/17/20 10:00 06/17/20 10:00 06/17/20 10:00 06/17/20 10:00 06/17/20 10:00 Oxygen Delivery Method Room Air Weight: 138 lb 3.677 oz Body Mass Index (BMI) 23.7 Intake and Output for Last 24 Hours 06/15/20 06/16/20 06/17/20 23:59 23:59 23:59 Intake Total 1710 / 2210 500 / 500 Balance 1710 / 2210 500 / 500 General: Alert, Oriented x3, Cooperative, No apparent distress HEENT: Atraumatic, PERRLA, EOMI, Normocephalic Oral: Moist Mucosa, No Gingival or Mucosal Lesions/ Ulcerations Neck: Supple, No JVD, Negative Carotid Bruits, Trachea Midline, Thyroid Normal Size and Texture Lungs: Clear to auscultation, Normal air movement, No rhonchi, No wheeze, No rales Cardiovascular: Regular rate, Regular Rhythm, Normal S1, Normal S2, PMI Normal Abdomen: Bowel Sounds Present, Soft, Non Tender, Non-Distended, No Hepato-splenomegaly Extremities: No clubbing, No cyanosis, No edema Skin: No rashes, No breakdown Lymphatic: No Cervical, Supraclavicular, or Inguinal Adenopathy Neurological: Cranial nerves II-XII grossly intact, Neuro grossly intact Psych/Mental Status: Normal Affect, Appropriate Current Medications Acetaminophen (Acetaminophen 500 Mg Tablet) 500 mg PO Q4H PRN PRN PRN Reason: Temp > 100.4 F Al Hydroxide/Mg Hydroxide (Mag Hydrox/Al Hydrox/Simeth 30 Ml Udc) 30 ml PO Q6H PRN PRN PRN Reason: dyspesia Buprenorphine HCl (Buprenorphine Hcl 2 Mg Tab.Subl) 2 mg SL Q12H FRANCK; Taper Stop: 06/17/20 22:59 Last Admin: 06/17/20 10:02 Dose: 2 mg Documented by: Clonidine (Clonidine Hcl 0.1 Mg Tablet) 0.1 mg PO Q8H PRN PRN PRN Reason: RESTLESSNESS Last Admin: 06/16/20 22:21 Dose: 0.1 mg Documented by: Dicyclomine HCl (Dicyclomine 10 Mg Capsule) 20 mg PO Q6H PRN PRN PRN Reason: Abdominal Discomfort Gabapentin (Gabapentin 300 Mg Capsule) 300 mg PO Q8H PRN PRN PRN Reason: moderate to severe anxiety Last Admin: 06/17/20 10:14 Dose: 300 mg Documented by: Hydroxyzine Pamoate (Hydroxyzine Dorinda 25 Mg Capsule) 50 mg PO Q6H PRN PRN PRN Reason: mild anxiety Last Admin: 06/16/20 14:32 Dose: 50 mg Documented by: Ibuprofen (Ibuprofen 600 Mg Tablet) 600 mg PO Q8H PRN PRN PRN Reason: Pain Score 1-10 Last Admin: 06/17/20 10:14 Dose: 600 mg Documented by: Loperamide HCl (Loperamide 2 Mg Capsule) 2 mg PO Q4H PRN PRN PRN Reason: LOOSE STOOLS Methocarbamol (Methocarbamol 750 Mg Tablet) 1,500 mg PO Q6H PRN PRN PRN Reason: MUSCLE SPASM Last Admin: 06/16/20 17:39 Dose: 1,500 mg Documented by: Nicotine (Nicotine 21 Mg Patch) 21 mg TD DAILY [facility] Last Admin: 06/17/20 10:14 Dose: 21 mg Documented by: Nicotine Polacrilex (Nicotine Polacrilex 4 Mg Gum) 4 mg PO Q2H PRN PRN PRN Reason: Nicotine Craving Nutritional Formula (Lactose Free) (Ensure Enlive 120 Ml Liquid) 120 ml PO 4X/DAY [facility] Last Admin: 06/17/20 10:02 Dose: 120 ml Documented by: Ondansetron HCl (Ondansetron 8 Mg Tablet) 8 mg PO Q8H PRN PRN PRN Reason: NAUSEA Last Admin: 06/15/20 08:55 Dose: 8 mg Documented by: Senna (Senna Tablet) 2 tablet PO QHS PRN PRN Reason: Constipation Last Admin: 06/15/20 19:26 Dose: 2 tablet Documented by: Trazodone HCl (Trazodone 100 Mg Tablet) 100 mg PO QHS PRN PRN PRN Reason: INSOMNIA Discharge Activity: Return to Normal Activity Weight Bearing Status: Full weight bearing Call your doctor if you observe: Fever of 101 or Higher, Shortness of breath, Dizziness, Fainting spells, Chest pain, Increased palpitations (irregular heartbeat), Uncontrolled pain Home Medications: Medications to take at Discharge 06/14/20 Primary Care Physician: Care Physician,No Primary [Primary Care Provider] - Please follow up with your Primary Care Physician in: 2-3 WEEKS. Disposition: Home Minutes spent on discharge:: 26 Patient Condition:: Stable Medical Necessity - Tobacco Use Smoking Status: Current every day smoker Tobacco Use: Cigarettes Meaningful Use Info Meaningful Use Diagnoses (Choose all that apply): None applicable Inpatient E&M: 17898 Disch Hosp
--- NOTE | 2020-06-17 13:00 | NURSING ---
Enter room to take pt discharge paperwork. Pt asking if her boyfriend who is also a [facility]AMP pt is discharged today also. This RN tells pt she is unsure of boyfriend's discharge plan as he is not a pt assigned to this RN. Pt states that her and her boyfriend have to leave at the same time as she does not have a ride and is homeless. She states her mother who is listed as her contact lives in [place], and has no place to go. Pt also c/o withdrawal symptoms such as anxiety, sweats, and headache that have not resolved and requesting PRN meds for these. Dr. Pleitez notified of situation and agrees to keep pt until tomorrow. Will continue to medicate with PRN meds.
--- NOTE | 2020-06-17 13:02 | PCM.PN.BLA ---
Progress Note Patient was discharged but she stated that she has no place to go, she is homeless. She is planning to go to inpatient treatment with her boyfriend who is also a patient here for detox. Discharge was canceled and patient will be discharged tomorrow as she is going into residential treatment. STROKE Vital Signs/Narrative: Vital Signs Temp Pulse Resp BP Pulse Ox 06/17/20 10:00 98.0 F 106 H 18 146/75 H 100
--- NOTE | 2020-06-17 13:04 | PCM.PROGNOTE ---
Patient Problems: Active and Suspected Problems Acute opioid withdrawal (Acute) Subjective: Chief complaint: Follow-up after admission for acute opioid withdrawal. Patient seen and examined. No acute events overnight. She is feeling better, symptoms improved. Initially, she was discharged but she stated that she is homeless, has no place to go. Her boyfriend is a patient here also for detox and they are planning to go to residential treatment tomorrow. Discharge canceled. Her vital signs are stable. Plan to be discharged tomorrow. - Physical Exam Vitals/I&O's: Vital Signs Temp Pulse Resp BP Pulse Ox 98.0 F 106 H 18 146/75 H 100 06/17/20 10:00 06/17/20 10:00 06/17/20 10:00 06/17/20 10:06/17/20 10:00 Oxygen Delivery Method Room Air Weight: 138 lb 3.677 oz Body Mass Index (BMI) 23.7 Intake and Output for Last 24 Hours 06/15/20 06/16/20 06/17/20 23:59 23:59 23:59 Intake Total 1710 / 2210 500 / 500 Balance 1710 / 2210 500 / 500 General: Alert, Oriented x3, Cooperative, No apparent distress HEENT: Atraumatic, PERRLA, EOMI, Normocephalic Oral: Moist Mucosa, No Gingival or Mucosal Lesions/ Ulcerations Neck: Supple, No JVD, Negative Carotid Bruits, Trachea Midline, Thyroid Normal Size and Texture Lungs: Clear to auscultation, No rhonchi, No wheeze, No rales Cardiovascular: Regular rate, Regular Rhythm, Normal S1, Normal S2, PMI Normal Abdomen: Bowel Sounds Present, Soft, Non Tender, Non-Distended, No Hepato-splenomegaly Extremities: No clubbing, No cyanosis, No edema Skin: No rashes, No breakdown Lymphatic: No Cervical, Supraclavicular, or Inguinal Adenopathy Neurological: Cranial nerves II-XII grossly intact, Neuro grossly intact Psych/Mental Status: Normal Affect, Appropriate Current Medications Acetaminophen (Acetaminophen 500 Mg Tablet) 500 mg PO Q4H PRN PRN PRN Reason: Temp > 100.4 F Al Hydroxide/Mg Hydroxide (Mag Hydrox/Al Hydrox/Simeth 30 Ml Udc) 30 ml PO Q6H PRN PRN PRN Reason: dyspesia Buprenorphine HCl (Buprenorphine Hcl 2 Mg Tab.Subl) 2 mg SL Q12H FRANCK; Taper Stop: 06/17/20 22:59 Last Admin: 06/17/20 10:02 Dose: 2 mg Documented by: Clonidine (Clonidine Hcl 0.1 Mg Tablet) 0.1 mg PO Q8H PRN PRN PRN Reason: RESTLESSNESS Last Admin: 06/16/20 22:21 Dose: 0.1 mg Documented by: Dicyclomine HCl (Dicyclomine 10 Mg Capsule) 20 mg PO Q6H PRN PRN PRN Reason: Abdominal Discomfort Gabapentin (Gabapentin 300 Mg Capsule) 300 mg PO Q8H PRN PRN PRN Reason: moderate to severe anxiety Last Admin: 06/17/20 10:14 Dose: 300 mg Documented by: Hydroxyzine Pamoate (Hydroxyzine Dorinda 25 Mg Capsule) 50 mg PO Q6H PRN PRN PRN Reason: mild anxiety Last Admin: 06/16/20 14:32 Dose: 50 mg Documented by: Ibuprofen (Ibuprofen 600 Mg Tablet) 600 mg PO Q8H PRN PRN PRN Reason: Pain Score 1-10 Last Admin: 06/17/20 10:14 Dose: 600 mg Documented by: Loperamide HCl (Loperamide 2 Mg Capsule) 2 mg PO Q4H PRN PRN PRN Reason: LOOSE STOOLS Methocarbamol (Methocarbamol 750 Mg Tablet) 1,500 mg PO Q6H PRN PRN PRN Reason: MUSCLE SPASM Last Admin: 06/16/20 17:39 Dose: 1,500 mg Documented by: Nicotine (Nicotine 21 Mg Patch) 21 mg TD DAILY [facility] Last Admin: 06/17/20 10:14 Dose: 21 mg Documented by: Nicotine Polacrilex (Nicotine Polacrilex 4 Mg Gum) 4 mg PO Q2H PRN PRN PRN Reason: Nicotine Craving Nutritional Formula (Lactose Free) (Ensure Enlive 120 Ml Liquid) 120 ml PO 4X/DAY [facility] Last Admin: 06/17/20 10:02 Dose: 120 ml Documented by: Ondansetron HCl (Ondansetron 8 Mg Tablet) 8 mg PO Q8H PRN PRN PRN Reason: NAUSEA Last Admin: 06/15/20 08:55 Dose: 8 mg Documented by: Senna (Senna Tablet) 2 tablet PO QHS PRN PRN Reason: Constipation Last Admin: 06/15/20 19:26 Dose: 2 tablet Documented by: Trazodone HCl (Trazodone 100 Mg Tablet) 100 mg PO QHS PRN PRN PRN Reason: INSOMNIA Medical Necessity - Tobacco Use Smoking Status: Current every day smoker Tobacco Use: Cigarettes Assessment/Plan All Active Problems Acute opioid withdrawal (Acute) This is a 29 years old female patient admitted for acute opioid withdrawal for medical stabilization. #1 acute opiate withdrawal: She is feeling better, symptoms improved. Currently, she is on tapering Subutex, as needed Catapres, Bentyl, Neurontin, Vistaril, Motrin, Imodium, methocarbamol, Zofran and trazodone. Her vital signs are stable. Routine blood work was unremarkable. LFT revealed slight elevated ALT, otherwise normal. test was negative. Urine drug screen was positive for amphetamines admitted for the means. Blood alcohol level was less then 3. Patient was initially discharged but she is homeless, has no place to go and she stated that her boyfriend is also in the hospital for detox. Plan to DC tomorrow, going to inpatient treatment. #2 polysubstance abuse: Patient has been using heroin as well as amphetamines. Urine drug screen reviewed as above. #3 tobacco abuse: Continue nicotine patch. #4 chronic hepatitis C: Currently not on treatment, recommend follow-up with infectious disease as outpatient. #5 DVT prophylaxis: Low risk patient, no prophylaxis indicated. This note was generated with [employer] dictation software. It may contain incorrect words, spelling, and punctuation that were not noted in checking the note before signing. Inpatient E&M: 39942 Subs Hosp L2
[2020-06-17 13:35] VITALS: BP 108/83; PULSE 88; RESP 18; TEMP 36.5; O2SAT 100
[2020-06-17] MEDS: Methocarbamol 750 MG Tablet 1500 MG PO (17:21)
[2020-06-17] MEDS: hydrOXYzine PAM 25 MG Capsule 50 MG PO (17:21)
[2020-06-17] MEDS: cloNIDine HCl 0.1 MG Tablet PO (20:43)
[2020-06-17] MEDS: traZODone 100 MG Tablet PO (20:43)
[2020-06-17 21:20] VITALS: BP 122/57; PULSE 92; RESP 18; TEMP 36.9; O2SAT 98
[2020-06-18 04:15] VITALS: BP 116/83; PULSE 84; RESP 16; TEMP 37; O2SAT 99
--- NOTE | 2020-06-18 07:53 | DCINST_ITS ---
- Discharge Diagnoses Current Active Problems: Current Active and Chronic Problems Chronic, continuous use of opioids (Chronic) Acute opioid withdrawal (Acute) Anxiety and depression (Chronic) You will use the following diet at home:: Regular Discharge Activity: Return to Normal Activity Weight Bearing Status: Full weight bearing Call your doctor if you observe: Fever of 101 or Higher, Coldness, Increased Pain, Numbness or Tingling, Change in Color, Inability to urinate, Inability to have a bowel movement, Using more than one pad per hour, Shortness of breath, Dizziness, Fainting spells, Swelling in the ankles, Chest pain, Prolonged hic coughing, Increased palpitations (irregular heartbeat), Uncontrolled pain Allergies/Adverse Reactions: Allergies Sulfa (Sulfonamide Antibiotics) Allergy (Verified 06/14/20 19:33) Rash Medications to take at Discharge NK 06/14/20 Primary Care Physician: Care Physician,No Primary [Primary Care Provider] - Please follow up with your Primary Care Physician in: 2-3 WEEKS. Test Results: Test results from this visit will be discussed in further detail at your follow- up appointment, if applicable.
[2020-06-18] MEDS: hydrOXYzine PAM 25 MG Capsule 50 MG PO (09:06)
[2020-06-18] MEDS: Ibuprofen 600 MG Tablet PO (09:06)
--- NOTE | 2020-06-18 09:53 | PCM.DC.SUM ---
Discharge Date and Diagnosis - Problem List Patient Problems: Active and Suspected Problems Acute opioid withdrawal (Acute) Date of Admission: 06/14/20 Date of Discharge: 06/18/20 - Primary Discharge Diagnosis Acute Problems: Active Problems Acute opioid withdrawal (Acute) - Secondary Discharge Diagnosis Chronic Problems: Chronic Problems Chronic, continuous use of opioids (Chronic) Anxiety and depression (Chronic) Hospital Course and Treatment Operations: None Summary of Care Provided: [] This is a 29 years old female patient admitted for acute opioid withdrawal for medical stabilization. #1 acute opiate withdrawal with history of chronic opioid use, dependence and tolerance: Her symptoms are controlled. Patient was treated with buprenorphine and other supportive medications including clonidine, Bentyl, Neurontin, hydroxyzine, Motrin, loperamide, methocarbamol and trazodone as needed. Patient had routine blood work which was unremarkable. Vital signs are in normal range. test was negative. Liver chemistry shows slightly elevated ALT, 88 and alkaline phosphatase 138. She was initially discharged but waited for his boyfriend to be discharged as she is homeless. #2 polysubstance abuse: Patient has been using heroin as well as amphetamines. U tox positive of amphetamine and methamphetamine. #3 tobacco abuse: Continue nicotine patch. #4 chronic hepatitis C: Currently not on treatment, recommend follow-up with PCP or ID. #5 DVT prophylaxis: Low risk patient, no prophylaxis indicated. Discharge medication reconciliation done. Discharge follow-up instructions completed. Discharge process discussed with the patient and all questions were answered to patient's satisfaction. Total time spent, exact 35 minutes on discharge meds reconciliation, examination, coordination of care with nurses and ancillary staff, review of imaging and blood test and discussion with the patient on follow-up instructions Patient Problems: Active and Suspected Problems Acute opioid withdrawal (Acute) Objective: Patient was upset as her boyfriend was discharged and wanted to leave the hospital as soon as possible. Patient on no distress. Physical exam General: Alert, Oriented x3, Cooperative HEENT: Atraumatic, PERRLA, EOMI, Normocephalic Oral: No Gingival or Mucosal Lesions/ Ulcerations Neck: Supple, No JVD, Negative Carotid Bruits Lungs: Air entry diminished in bilateral lung bases. No crepitation/rhonchi Cardiovascular: Regular rate, Regular Rhythm, Normal S1, Normal S2, No murmurs Abdomen: Bowel Sounds Present, Soft, Non Tender, Non-Distended : No renal angle tenderness. No suprapubic tenderness. Extremities: No edema, Capillary Refill Less than 3 Seconds Skin: No rashes, No breakdown Musculoskeletal: No Tenderness to Palpation of Joints or Extremities Neurological: Cranial nerves II-XII grossly intact, Deep Tendon Reflexes 2+/4 and Symmetrical, Neuro grossly intact Psych/Mental Status: Normal Affect, Appropriate. - Physical Exam Vitals/I&O's: Vital Signs Temp Pulse Resp BP Pulse Ox 98.6 F 84 16 116/83 H 99 06/18/20 04:15 06/18/20 04:15 06/18/20 04:15 06/18/20 04:15 06/18/20 04:15 Oxygen Delivery Method Room Air Weight: 138 lb 3.677 oz Body Mass Index (BMI) 23.7 Intake and Output for Last 24 Hours 06/16/20 06/17/20 06/18/20 23:59 23:59 23:59 Intake Total 1710 / 2210 1700 / 2300 1080 / 1080 Balance 1710 / 2210 1700 / 2300 1080 / 1080 Current Medications Acetaminophen (Acetaminophen 500 Mg Tablet) 500 mg PO Q4H PRN PRN PRN Reason: Temp > 100.4 F Al Hydroxide/Mg Hydroxide (Mag Hydrox/Al Hydrox/Simeth 30 Ml Udc) 30 ml PO Q6H PRN PRN PRN Reason: dyspesia Clonidine (Clonidine Hcl 0.1 Mg Tablet) 0.1 mg PO Q8H PRN PRN PRN Reason: RESTLESSNESS Last Admin: 06/17/20 20:43 Dose: 0.1 mg Documented by: Dicyclomine HCl (Dicyclomine 10 Mg Capsule) 20 mg PO Q6H PRN PRN PRN Reason: Abdominal Discomfort Gabapentin (Gabapentin 300 Mg Capsule) 300 mg PO Q8H PRN PRN PRN Reason: moderate to severe anxiety Last Admin: 06/17/20 10:14 Dose: 300 mg Documented by: Hydroxyzine Pamoate (Hydroxyzine Dorinda 25 Mg Capsule) 50 mg PO Q6H PRN PRN PRN Reason: mild anxiety Last Admin: 06/17/20 17:21 Dose: 50 mg Documented by: Ibuprofen (Ibuprofen 600 Mg Tablet) 600 mg PO Q8H PRN PRN PRN Reason: Pain Score 1-10 Last Admin: 06/17/20 20:43 Dose: 600 mg Documented by: Loperamide HCl (Loperamide 2 Mg Capsule) 2 mg PO Q4H PRN PRN PRN Reason: LOOSE STOOLS Methocarbamol (Methocarbamol 750 Mg Tablet) 1,500 mg PO Q6H PRN PRN PRN Reason: MUSCLE SPASM Last Admin: 06/17/20 17:21 Dose: 1,500 mg Documented by: Nicotine (Nicotine 21 Mg Patch) 21 mg TD DAILY [facility] Last Admin: 06/17/20 10:14 Dose: 21 mg Documented by: Nicotine Polacrilex (Nicotine Polacrilex 4 Mg Gum) 4 mg PO Q2H PRN PRN PRN Reason: Nicotine Craving Nutritional Formula (Lactose Free) (Ensure Enlive 120 Ml Liquid) 120 ml PO 4X/DAY [facility] Last Admin: 06/17/20 20:44 Dose: 120 ml Documented by: Ondansetron HCl (Ondansetron 8 Mg Tablet) 8 mg PO Q8H PRN PRN PRN Reason: NAUSEA Last Admin: 06/15/20 08:55 Dose: 8 mg Documented by: Senna (Senna Tablet) 2 tablet PO QHS PRN PRN Reason: Constipation Last Admin: 06/15/20 19:26 Dose: 2 tablet Documented by: Trazodone HCl (Trazodone 100 Mg Tablet) 100 mg PO QHS PRN PRN PRN Reason: INSOMNIA Last Admin: 06/17/20 20:43 Dose: 100 mg Documented by: Discharge Activity: Return to Normal Activity Weight Bearing Status: Full weight bearing Call your doctor if you observe: Fever of 101 or Higher, Shortness of breath, Dizziness, Fainting spells, Chest pain, Increased palpitations (irregular heartbeat), Uncontrolled pain Home Medications: Medications to take at Discharge NK 06/14/20 Primary Care Physician: Care Physician,No Primary [Primary Care Provider] - Please follow up with your Primary Care Physician in: 2-3 WEEKS. Disposition: Home Medical Necessity - Tobacco Use Smoking Status: Current every day smoker Tobacco Use: Cigarettes Meaningful Use Info Meaningful Use Diagnoses (Choose all that apply): None applicable Inpatient E&M: 91423 [facility]
== END 2020-06-18 09:18 | disposition home or self-care (01) | DRG 773 ==
LOC: ED 20:47 → MS3 21:48
PROVIDERS: Admitting Provider Internal Medicine; Emergency Provider Emergency Medicine; Visit Provider Internal Medicine
DX: F11.23 Opioid dependence with withdrawal (principal); B18.2 Chronic viral hepatitis C; F15.10 Other stimulant abuse, uncomplicated; F17.210 Nicotine dependence, cigarettes, uncomplicated; Z59.0 Homelessness
CPT/HCPCS: 36415; 80053; 80307; 81025; 82077; 85025; 97802; 99283; 99406